=== PATIENT | female | born 1980 | race Caucasian/White ===

== ENCOUNTER → 2018-03-27 | Outpatient (CLI) | payer OTHER ==
--- NOTE | 2018-03-27 17:12 | CT ---
EXAMINATION TYPE: CT abdomen pelvis w con DATE OF EXAM: 03/27/2018 HISTORY: RLQ pain with nausea and vomiting for [address] DLP: 1083.5mGycm Automated Exposure Control for Dose Reduction was Utilized. CONTRAST: CT scan of the abdomen and pelvis is performed with IV Contrast, patient injected with 100 mL of Isov ue 300. COMPARISON: None FINDINGS: LUNG BASES: No significant abnormality is appreciated. LIVER/GB: Cholecystectomy clips are noted. PANCREAS: No significant abnormality is seen. SPLEEN: No significant abnormality is seen. ADRENALS: No significant abnormality is seen. KIDNEYS: No significant abnormality is seen. BOWEL: Oral contrast reaches level of splenic flexure making evaluation of distal bowel suboptimal. A ppendix is contrast-filled and unremarkable from base of cecum seen best coronal images 43 through 50 . There is no suspicious small or large bowel dilatation. UTERUS/ADNEXA: There is heterogeneous slightly retroverted uterus with lobulation and hypoechoic area s suspicious for fibroids. Left ovary is seen axial image 74. There is 2.8 x 1.7 cm low dense lesion left ovary could reflect simple small ovarian cyst. There is larger 4.5 x 4.0 cm oval low dense lesio n right ovary could reflect simple ovarian cyst axial image 79. Findings can be better evaluated with pelvic ultrasound is desired. LYMPH NODES: No greater than 1cm abdominal or pelvic lymph nodes are appreciated. OSSEOUS STRUCTURES: No significant abnormality is seen. OTHER: No significant additional abnormality is seen. IMPRESSION: No CT evidence for acute appendicitis. No significant acute finding is seen to account fo r patient's clinical symptoms.
== END | disposition home or self-care (01) ==
LOC: RADCTMAIN 14:12
PROVIDERS: ATTEND Internal Medicine
DX: R10.30 Lower abdominal pain, unspecified (principal)
CPT/HCPCS: 74177; Q9967

== ENCOUNTER → 2018-05-08 | Outpatient (CLI) | payer OTHER ==
--- NOTE | 2018-05-09 07:15 | US ---
EXAMINATION TYPE: US transvaginal DATE OF EXAM: 05/08/2018 COMPARISON: 03/21/2012 CLINICAL HISTORY: R10.2 Pelvic pain. Hx of ovarian cysts ablation 2012 pain TECHNIQUE: Transvaginal (TV). Transabdominal sonographic images of the pelvis were acquired. Trans vaginal sonographic images were medically necessary to better assess the following anatomy: EXAM MEASUREMENTS: Uterus: 6.1 x 3.2 x 4.8 cm Endometrial Stripe: 0.3m Right Ovary: 4.5 x 3.6 x 5.0 Left Ovary: 2.4 x 1.4 x 1.3 1. Uterus: Retroverted Heterogenous 2 hypoechoic areas seen not well defined border largest 1.7 x 1. 1 x 1.5cm. 2. Endometrium: wnl 3. Right Ovary: No ovarian tissue seen due to cystic area 4.5 x 3.6 x 5.0cm. 4. Left Ovary: wnl 5. Bilateral Adnexa: wnl 6. Posterior cul-de-sac: wnl Right ovarian cyst seen 4.5 x 3.6 x 5.0 cm. IMPRESSION: 1. Large right ovarian simple appearing cyst. Follow-up exam following the next normal menstrual brisa od is recommended. 2. Suspected small uterine fibroids.
== END | disposition home or self-care (01) ==
LOC: RADUSMAIN 17:52
PROVIDERS: ATTEND Obstetrics & Gynecology
DX: N83.201 Unspecified ovarian cyst, right side (principal)
CPT/HCPCS: 76830

== ENCOUNTER → 2018-06-26 | Outpatient (CLI) | payer OTHER ==
[2018-06-26 16:36] LABS: Basophils # (A) 0.1 k/uL (0-0.2); Basophils % (A) 1 %; Eosinophils # (A) 0.2 k/uL (0-0.7); Eosinophils % (A) 4 %; HCT 43.5 % (34.0-46.0); HGB 14.3 gm/dL (11.4-16.0); Lymphocytes # (A) 1.7 k/uL (1.0-4.8); Lymphocytes % (A) 26 %; MCH 30.9 pg (25.0-35.0); MCHC 32.8 g/dL (31.0-37.0); MCV 94.1 fL (80.0-100.0); Mean Platelet Volume 6.9; Monocytes # (A) 0.3 k/uL (0-1.0); Monocytes % (A) 5 %; Neutrophils % (A) 61 %; Platelet Count 227 k/uL (150-450); RBC 4.62 m/uL (3.80-5.40); RDW 13.2 % (11.5-15.5); WBC 6.5 k/uL (3.8-10.6)
[2018-06-26 16:47] LABS: Anion Gap 6 mmol/L; Blood Urea Nitrogen 10 mg/dL (7-17); Carbon Dioxide 26 mmol/L (22-30); Chloride 109 mmol/L (98-107); Glucose 88 mg/dL (74-99); Potassium 3.8 mmol/L (3.5-5.1); Sodium 141 mmol/L (137-145)
== END | disposition home or self-care (01) ==
LOC: LABPAT 15:45
PROVIDERS: ATTEND Obstetrics & Gynecology
DX: Z01.812 Encounter for preprocedural laboratory examination (principal); R10.2 Pelvic and perineal pain; N94.10 Unspecified dyspareunia; N83.201 Unspecified ovarian cyst, right side
CPT/HCPCS: 36415; 80051; 82565; 82947; 84520; 85025; 87086

== ENCOUNTER 2018-07-03 05:43 | Observation (INO) | payer OTHER ==
[2018-06-21 17:56] VITALS: BMI 32.8
--- NOTE | 2018-07-02 12:15 | HP ---
HISTORY AND PHYSICAL DATE OF PROCEDURE: 07/03/2018 HISTORY: This is a 37-year-old gravid 2, para 1-0-1-1 woman who was admitted for robotic- assisted laparoscopic assisted vaginal hysterectomy and right salpingo-oophorectomy for a history of chronic worsening pelvic pain and right ovarian cyst. She has daily right- sided pelvic pain and dyspareunia. She has a 5 cm simple ovarian cyst initially seen on CT scan and confirmed by ultrasound. She has a history of NovaSure endometrial ablation in 2007 and she has been amenorrheic since 2012. She has a tubal ligation for contraception. ALLERGIES: No known drug allergies. MEDICATIONS: None. PAST MEDICAL HISTORY: Pelvic pain. PAST SURGICAL HISTORY: NovaSure endometrial ablation 2007, tubal ligation 2007, cholecystectomy 2007 and cataract surgery. PAST OB-CONTINUITY TESTER HISTORY: She is a 2, para 1-0-1-1 with a history of spontaneous vaginal delivery in 1998 and voluntary termination in 2002. No history of abnormal PAP smears or STDs. She has had a tubal ligation. FAMILY HISTORY: Significant for mother with diabetes and a heart murmur and cancer, not otherwise specified. SOCIAL HISTORY: She is . She is a former 1 [id number] tobacco user, quit smoking one year ago. She drinks one alcoholic beverage per day and has a remote history of illicit drug use, last used 2012. REVIEW OF SYSTEMS: Positive for dyspareunia, chronic pelvic pain, chronic nausea and vomiting. Negative for menorrhagia, vaginal bleeding, blood in the stool or urine, fever, chills, headaches or other neurologic signs. PHYSICAL EXAM: VITAL SIGNS: Blood pressure 100/70, weight 185 pounds, height 5 feet 2 inches. In general, this is a pleasant female in no acute distress. HEENT exam is unremarkable with no palpable lymphadenopathy or thyromegaly. She has no axillary adenopathy. The lungs are clear to auscultation bilaterally and the heart is of regular rate and rhythm. On abdominal examination she has generalized right lower quadrant pain with no rebound and no guarding. On pelvic examination, she has normal female external genitalia without lesions or irritation. Speculum examination of the cervix appears normal without any gross lesions, polyps or discharge. By manual examination, the uterus is small, freely mobile and in the midline. She does have palpable right ovarian cyst and tenderness in the right adnexa. ASSESSMENT: This is a 37-year-old gravid 2, para 1-0-1-1 woman with chronic severe pelvic pain, dyspareunia and right ovarian cyst on imaging. She is scheduled to undergo robotic- assisted, laparoscopic-assisted vaginal hysterectomy with right salpingo-oophorectomy, cystoscopy, possible total abdominal hysterectomy and right salpingo-oophorectomy. I have reviewed this procedure and other options in detail with the patient in the office. She has been offered and declined a second opinion. Risks of this procedure have been reviewed in detail and include but are not limited to colon bleeding, transfusion, laparotomy, infection, damage to bowel, bladder, ureters, vagina, other pelvic or intra-abdominal structures. There is risk of anesthesia complications, DVT, PE and or need for reoperation in the future. She understands there is a risk for ongoing pelvic pain postoperatively. The patient understands the possible risks and consent is obtained. MMODL / IJN: [id number] /
[~2018-07-03 05:43] MED LIST: DEXAMETHASONE SOD PHOSPHATE 10 MG/ML 1 ML VIAL IV ONE; LIDOCAINE 1% 20 ML VIAL (10MG/ML) FOR IV START INTRADERMA PRN; MIDAZOLAM (PF) 2 MG/2 ML VIAL IV PRN; ceFAZolin IN SWFI 2 GM/20 ML SYRINGE IVP ONE; fentaNYL (PF) 50 MCG/ML 2 ML AMP IV PRN
[2018-07-03] MEDS: LACTATED RINGERS 1,000 ML IV SCH ×2 (06:37→18:35)
[2018-07-03] MEDS ORDERED: ONDANSETRON 4 MG/2 ML VIAL IVP ONE (06:41)
[2018-07-03] MEDS ORDERED: PROPOFOL 10 MG/ML 20 ML VIAL IV ONE (07:20)
[2018-07-03] MEDS ORDERED: fentaNYL (PF) 50 MCG/ML 2 ML AMP ONE (07:20)
[2018-07-03] MEDS ORDERED: SUCCINYLCHOLINE CHLORIDE 100 MG/5 ML SYR IV ONE (07:20)
[2018-07-03] MEDS ORDERED: KETAMINE 10 MG/ML 20 ML VIAL ONE (07:20)
[2018-07-03] MEDS ORDERED: ePHEDrine SULFATE/0.9% NACL/PF 50 MG/5 ML SYRINGE IV ONE (07:20)
[2018-07-03] MEDS ORDERED: NEOSTIGMINE 1 MG/ML 10 ML VIAL ONE (07:20)
[2018-07-03] MEDS ORDERED: MIDAZOLAM 2 MG/2 ML VIAL ONE (07:20)
[2018-07-03] MEDS ORDERED: ROCURONIUM BROMIDE 10 MG/ML 10 ML VIAL IV ONE (07:20)
[2018-07-03] MEDS ORDERED: GLYCOPYRROLATE 0.2 MG/ML 2 ML VIAL ONE (07:20)
[2018-07-03] MEDS ORDERED: KETOROLAC 30 MG/ML 1 ML VIAL ONE (07:20)
[2018-07-03] MEDS ORDERED: LIDOCAINE 1% INJ 10MG/ML (20 ML MDV) ONE (07:20)
[2018-07-03] MEDS ORDERED: ROPIVACAINE 5 MG/ML 30 ML VIAL MISCELLANE ONE ×2 (08:08→10:03)
[2018-07-03] MEDS ORDERED: LACTATED RINGERS 1,000 ML IV ONE (10:00)
--- NOTE | 2018-07-03 10:13 | P.OP ---
Date of Procedure: 07/03/18 Preoperative Diagnosis: Chronic pelvic pain Dyspareunia Right ovarian cyst Postoperative Diagnosis: Chronic pelvic pain Dyspareunia Right ovarian cyst Significant pelvic adhesive disease Procedure(s) Performed: Robotic-assisted laparoscopic assisted vaginal hysterectomy, right salpingo- oophorectomy, cystoscopy Anesthesia: EDENA Surgeon: Celeste Mayers Staff Sonographer #1: Sridevi Holt Estimated Blood Loss (ml): 75 IV fluids (ml): 1,000 Urine output (ml): 250 Pathology: other (Uterus, right fallopian tube, right ovary) Condition: stable Disposition: PACU Operative Findings: Uterus with an obliterated endometrial canal. Simple 5 cm right ovarian cyst. Small retroverted uterus. Adhesions involving the sigmoid colon to the posterior uterus, right adnexa and left adnexa. Description of Procedure: After the patient and her mother were met in the preoperative holding area and all questions were answered, she was taken to the operating room where anesthetic was administered without incident. She was then positioned, prepped and draped in the dorsal lithotomy position. The cervix was grasped anteriorly with a single-tooth tenaculum and uterine sound was introduced. The sound could only be advanced approximately 4 cm on the eye which time significant resistance was encountered consistent with her history of abrasion. Further attempt at sharp dilation was unsuccessful. The V care however was placed and the balloon insufflated. Montanez catheter was placed in the vagina. Attention was then turned to the abdomen. The patient was placed in low lithotomy position. A 10 mm supraumbilical skin incision was made. The anterior abdominal wall was grasped and elevated and the Veress needle was inserted carefully. A saline drop test indicated intraperitoneal placement. Initial filling pressure was 4 mm. The abdomen was then insufflated with CO2 gas to a total filling pressure of 15 mm. The patient was removed and the fluid was optical trocar was then utilized to introduce the camera. Intraperitoneal placement was noted. The patient was then placed in steep Trendelenburg. Under direct visualization da Kia ports were placed to the left and right and a 12 mm recruiting assistant port was placed in the left upper quadrant. At this time uterine manipulation was difficult and further attempts at advancing the manipulator device did result in the anterior left perforation of the uterus. This was directly visualized and the manipulator was placed back into better place. The inferior block was then docked in the usual fashion. The monopolar liliana were placed in arm 1 and the bipolar [place] graspers were placed in arm 2. The uterus was gently elevated but it was less than optimal was a. The right adnexa was addressed after sharp dissection of the sigmoid to posterior uterus adhesions were dissected away. The right adnexa had a 5 cm simple appearing ovarian cyst and adhesions to the right ovarian fossa. These were sharply dissected away allowing for better mobilization of the ovary. Infundibulopelvic ligament was then positively identified and was sequentially cauterized and cut. The right round ligament was sequentially cauterized and cut and the anterior leaf of the broad ligament was entered. Careful manipulation of the uterus to allow for visualization of the bladder. The anterior peritoneum was then inserted all the way down to the midline advancing the bladder away carefully. Attention was then turned to the left side. The left ovary was adherent to the left posterior cornea of the uterus and this was carefully dissected away. The tubo-ovarian pedicle was then sequentially cauterized and cut along the ovary to fall away. The left round ligament was then sequentially cauterized and cut. Again careful many uterine manipulation allowed for visualization of the bladder anteriorly and the anterior peritoneum was further dissected away. The anterior bladder was then carefully sharply and bluntly away and the vaginal cup of the manipulator was then palpable. The posterior leaves of the broad ligament were dissected away and there were extensive filmy adhesions to the sigmoid colon encountered that were dissected. The left uterine vasculature was then skeletonized, sequentially cauterized and cut. Attention was then turned to the right side where the right uterine vasculature was cauterized and cut. The uterus blanched appropriately. The bladder was reassessed and noted to be dissected away and early the colpotomy was then made anteriorly and carried around posteriorly and a circumferential fashion. Once the colpotomy was made completely there were still noted to be adhesions of the right ovarian cyst to the posterior cul-de-sac that were sharply dissected away. This completely freed the specimen was then delivered into the vagina. The self locking 2-0 Vicryl suture was then introduced after the instruments were changed out for needle route delivery driver and grasper. The cuff was then closed in a running fashion from right to left. Urine in the Montanez catheter remained clear throughout the procedure. The course of the right ureter was noted to enter abdominally to be peristalsing. The left ureter was not visualized secondary to adhesions of the left ovary to that area. Attention was then turned to cystoscopy. The Montanez catheter was removed and the diagnostic cystoscope was introduced. Immediately urine jets from both the right and left ureteral orifice see his were directly visualized. In the there is no evidence of blood or suture material or other defects in the bladder noted. The cystoscope was removed. The robot was undocked from the patient and ports were removed. The abdominal incisions were closed with 4-0 Vicryl suture in a subcuticular fashion and infused with ropivacaine. Sponge into the vagina revealed no active bleeding. The patient was then awoken from general anesthetic and transported recovery area in stable condition. All counts reported to me as correct by the operating room staff.
[2018-07-03] MEDS ORDERED: HYDROmorphone 1 MG/ML 1 ML SYRINGE IVP ONE (10:41)
[2018-07-03] MEDS ORDERED: ZOLPIDEM 5 MG TAB PO PRN (11:31)
[2018-07-03] MEDS ORDERED: ONDANSETRON 4 MG/2 ML VIAL IVP PRN (11:31)
[2018-07-03] MEDS ORDERED: SIMETHICONE 80 MG CHEWABLE PO PRN (11:31)
[2018-07-03] MEDS ORDERED: IBUPROFEN 600 MG TAB PO PRN (11:31)
[2018-07-03] MEDS ORDERED: Acetaminophen-Codeine 300-30mg TAB PO PRN ×2 (11:31)
[2018-07-03] MEDS ORDERED: METOCLOPRAMIDE 5 MG/ML 2 ML VIAL IVP PRN (11:31)
[2018-07-03] MEDS ORDERED: diphenhydrAMINE 50 MG/ML 1 ML VIAL IVP PRN (11:31)
[2018-07-03] MEDS ORDERED: diphenhydrAMINE 25 MG CAP PO PRN (15:39)
[2018-07-03] MEDS: KETOROLAC 30 MG/ML 1 ML VIAL IVP PRN ×2 (15:52→21:41)
[2018-07-03] MEDS: HYDROcodone/APAP 7.5-325MG 1 EACH TAB PO PRN (17:32)
[2018-07-03] MEDS: SENNOSIDES-DOCUSATE SODIUM 1 EACH TAB PO SCH (20:29)
[2018-07-04] MEDS: HYDROcodone/APAP 7.5-325MG 1 EACH TAB PO PRN (02:00)
[2018-07-04] MEDS: LACTATED RINGERS 1,000 ML IV SCH (02:49)
[2018-07-04] MEDS: KETOROLAC 30 MG/ML 1 ML VIAL IVP PRN (02:53)
[2018-07-04 07:41] VITALS: BP 108/64; PULSE 61; RESP 18; TEMP 97.7
[2018-07-04 07:48] LABS: Basophils % (A) 0 %; Eosinophils % (A) 0 %; HCT 35.8 % (34.0-46.0); HGB 11.5 gm/dL (11.4-16.0); Lymphocytes # (A) 1.2 k/uL (1.0-4.8); Lymphocytes % (A) 10 %; MCH 30.3 pg (25.0-35.0); MCHC 32.1 g/dL (31.0-37.0); MCV 94.4 fL (80.0-100.0); Mean Platelet Volume 6.5; Monocytes # (A) 0.6 k/uL (0-1.0); Monocytes % (A) 6 %; Neutrophils # (A) 9.6 k/uL (1.3-7.7); Neutrophils % (A) 83 %; Platelet Count 193 k/uL (150-450); RBC 3.79 m/uL (3.80-5.40); RDW 13.7 % (11.5-15.5); WBC 11.6 k/uL (3.8-10.6)
[2018-07-04] MEDS ORDERED: HYDROcodone/APAP 7.5-325MG 1 EACH TAB PO PRN (07:58)
--- NOTE | 2018-07-04 08:10 | P.DS ---
Providers Date of admission: 07/03/18 21:54 Expected date of discharge: 07/04/18 Attending physician: Celeste Mayers Primary care physician: Lily Strickland - Discharge Diagnosis(es) (1) Chronic pelvic pain in female Current Visit: Yes Status: Acute (2) Right ovarian cyst Current Visit: Yes Status: Acute (3) Dyspareunia Current Visit: Yes Status: Acute (4) Pelvic adhesions Current Visit: Yes Status: Acute Hospital Course: This is a 37-year-old 2 para 1011 woman who was admitted on 07/05/2018 for surgical management of chronic pelvic pain, dyspareunia and right ovarian cyst. She went to the operating room where she underwent a robotic-assisted laparoscopic assisted vaginal hysterectomy, right salpingo-oophorectomy, lysis of pelvic adhesions and cystoscopy. Findings at the time of surgery were remarkable for extensive pelvic adhesions and a 5 cm right ovarian cyst. Please see the operative report for details. Postoperatively she did have some low oxygen saturations on room air. She was instructed on incentive spirometry and monitored closely. On postop day 1 she has oxygen saturations at 90-94% on room air. She has no complaints of shortness of breath or cough. Her pain management required adjustment from Tylenol with Codeine to [place] with improved pain control. She was able to tolerate a general diet. She was ambulating however has not yet voided spontaneously with a Montanez catheter removed. She has no vaginal bleeding. Her incisions appear intact and well-healing. Her abdomen is soft with no rebound no guarding and no tenderness. She was therefore discharged home pending laboratory data, spontaneous voiding and adequate pain control. Anticipate discharge home later today. Procedures: Robotic-assisted laparoscopic assisted vaginal hysterectomy, right suppurative oophorectomy, cystoscopy Patient Condition at Discharge: Good Plan - Discharge Summary Discharge Rx Participant: Yes New Discharge Prescriptions: New HYDROcodone/APAP 7.5-325MG [[place] 7.5-325] 1 each PO Q6H PRN #20 tab PRN Reason: Pain Ibuprofen [Motrin] 600 mg PO Q6HR PRN #30 tab PRN Reason: Pain Control Sennosides-Docusate Sodium [Senokot-S] 2 each PO BID PRN #30 tab PRN Reason: Constipation Continue DULoxetine HCL [Cymbalta] 30 mg PO DAILY Discharge Medication List DULoxetine HCL [Cymbalta] 30 mg PO DAILY 05/25/16 [History] HYDROcodone/APAP 7.5-325MG [[place] 7.5-325] 1 each PO Q6H PRN #20 tab 07/04/18 [ Rx] Ibuprofen [Motrin] 600 mg PO Q6HR PRN #30 tab 07/04/18 [Rx] Sennosides-Docusate Sodium [Senokot-S] 2 each PO BID PRN #30 tab 07/04/18 [Rx] Follow up Appointment(s)/Referral(s): Celeste Mayers MD [STAFF PHYSICIAN] - 2 Weeks Activity/Diet/Wound Care/Special Instructions: Follow-up in the office 2 weeks postoperatively. Notify the office with any concerning signs or symptoms including heavy vaginal bleeding, severe abdominal or pelvic pain, fever greater than 100.5, redness or drainage from the incisions, foul vaginal discharge, redness or swelling of the lower extremities. Discharge Disposition: HOME SELF-CARE
[2018-07-04] MEDS ORDERED: DULoxetine HCL 30 MG CAPSULE.DR PO SCH (09:00)
[2018-07-04] MEDS: SENNOSIDES-DOCUSATE SODIUM 1 EACH TAB PO SCH (09:22)
== END 2018-07-04 13:35 | disposition home or self-care (01) ==
LOC: OR 05:43 → 4FBP 10:29 → OR 21:53 → 4FBP 21:54
PROVIDERS: ADMIT Obstetrics & Gynecology; ATTEND Obstetrics & Gynecology
DX: N80.0 Endometriosis of uterus (principal); N72 Inflammatory disease of cervix uteri; N73.6 Female pelvic peritoneal adhesions (postinfective); N83.201 Unspecified ovarian cyst, right side; N94.10 Unspecified dyspareunia; R10.2 Pelvic and perineal pain; G89.29 Other chronic pain; R11.2 Nausea with vomiting, unspecified; K21.9 Gastro-esophageal reflux disease without esophagitis; N91.2 Amenorrhea, unspecified; Z98.49 Cataract extraction status, unspecified eye; Z90.49 Acquired absence of other specified parts of digestive tract; Z98.51 Tubal ligation status; Z87.891 Personal history of nicotine dependence; Z83.3 Family history of diabetes mellitus; Z82.49 Family history of ischemic heart disease and other diseases of the circulatory system; Z80.9 Family history of malignant neoplasm, unspecified
CPT/HCPCS: 58552; S2900; 81025; 85025; 86850; 86900; 86901; 88307

== ENCOUNTER 2018-10-09 17:20 | Emergency (ER) | payer OTHER ==
[2018-10-09] MEDS ORDERED: SODIUM CHLORIDE 0.9% 1,000 ML IV STA (17:38)
--- NOTE | 2018-10-09 17:40 | ED ---
General Adult HPI - General Chief complaint: Abdominal Pain Stated complaint: Nausea/abd.pain Time Seen by Provider: 10/09/18 17:32 Source: patient, RN notes reviewed Mode of arrival: ambulatory Limitations: no limitations - History of Present Illness Initial comments: Patient's a 38-year-old female presented to the emergency room today with a chief complaint of abdominal pain that started this morning approximately 11 AM. Patient does admit to a sharp pain that starts in the middle of the abdomen to the right side around to the back. Patient states that it comes in waves. She is comes and goes. States currently not expressing any pain at this time. Patient does admit that when the pain is there she does feel nauseous. She states she's never had pain similar to this in the past. Patient does admit to previous history of endometriosis. She states that she had a hysterectomy and right ovary removed. Patient denies any other complaints. Patient denies any recent fever, chills, shortness of breath, chest pain, back pain, vomiting, hea daches or visual changes, or any other complaints. - Related Data Home Medications Medication Instructions Recorded Confirmed No Known Home Medications 10/09/18 10/09/18 Allergies Allergy/AdvReac Type Severity Reaction Status Date / Time No Known Allergies Allergy Verified 10/09/18 18:32 Review of Systems ROS Statement: Those systems with pertinent positive or pertinent negative responses have been documented in the HPI. ROS Other: All systems not noted in ROS Statement are negative. Past Medical History Past Medical History: No Reported History Additional Past Medical History / Comment(s): IBS, ovarian cyst History of Any Multi-Drug Resistant Organisms: None Reported Past Surgical History: Cholecystectomy, Hysterectomy, Tubal Ligation, Uterine Ablation Additional Past Surgical History / Comment(s): cataracts removed Past Anesthesia/Blood Transfusion Reactions: No Reported Reaction Past Psychological History: Depression Smoking Status: Never smoker Past Alcohol Use History: Occasional Past Drug Use History: Marijuana - Past Family History Mother Family Medical History: Cancer General Exam - General Exam Comments Initial Comments: General: The patient is awake and alert, in no distress, and does not appear acutely ill. Eye: There is normal conjunctiva bilaterally. No signs of icterus. Ears, nose, mouth and throat: There are moist mucous membranes and no oral lesions. Neck: The neck is supple, there is no tenderness or JVD. Cardiovascular: There is a regular rate and rhythm. No murmur, rub or gallop is appreciated. Respiratory: Lungs are clear to auscultation, respirations are non-labored, breath sounds are equal. No wheezes, stridor, rales, or rhonchi. Gastrointestinal: Abdomen soft on palpation. Nontender no rebound, guarding or CVA tenderness. Musculoskeletal: Normal ROM, no tenderness. Strength 5/5. Sensation intact. Neurological: A&O x 3. CN II-XII intact, There are no obvious motor or sensory deficits. Coordination appears grossly intact. Speech is normal. Skin: Skin is warm and dry and no rashes or lesions are noted. Psychiatric: Cooperative, appropriate mood & affect, normal judgment. Limitations: no limitations Course Vital Signs 10/09/18 10/09/18 17:27 19:15 Temperature 97.9 F Pulse Rate 64 56 L Respiratory 20 18 Rate Blood Pressure 120/77 100/65 O2 Sat by Pulse 99 99 Oximetry Medical Decision Making - Medical Decision Making The patient reexamined at the central no signs of distress procedures ago. Patient admits to being pain-free here in the emergency room at this time. Patient labs been reviewed unremarkable. Patient is advised following up with family doctor tomorrow. She does be discharged on the family doctor today who sent her home with an antibiotic. Patient is advised to return here to the emergency room for any symptoms increase worsen. Signs and symptoms of early appendicitis were discussed in detail. Patient states understanding and is ag reement with plan. - Lab Data Result diagrams: 10/09/18 18:25 10/09/18 18:25 Lab Results 10/09/18 10/09/18 10/09/18 Range/Units 18:25 18:25 18:25 WBC 9.4 (3.8-10.6) k/uL RBC 4.98 (3.80-5.40) m/uL Hgb 15.0 (11.4-16.0) gm/dL Hct 45.5 (34.0-46.0) % MCV 91.2 (80.0-100.0) fL MCH 30.1 (25.0-35.0) pg MCHC 33.0 (31.0-37.0) g/dL RDW 14.2 (11.5-15.5) % Plt Count 233 (150-450) k/uL Neutrophils % 74 % Lymphocytes % 18 % Monocytes % 5 % Eosinophils % 2 % Basophils % 0 % Neutrophils # 6.9 (1.3-7.7) k/uL Lymphocytes # 1.6 (1.0-4.8) k/uL Monocytes # 0.5 (0-1.0) k/uL Eosinophils # 0.2 (0-0.7) k/uL Basophils # 0.0 (0-0.2) k/uL Sodium 142 (137-145) mmol/L Potassium 4.3 (3.5-5.1) mmol/L Chloride 112 H (98-107) mmol/L Carbon Dioxide 24 (22-30) mmol/L Anion Gap 6 mmol/L BUN 13 (7-17) mg/dL Creatinine 0.65 (0.52-1.04) mg/dL Est GFR (CKD-EPI)AfAm >90 (>60 ml/min/1.73 sqM) Est GFR (CKD-EPI)NonAf >90 (>60 ml/min/1.73 sqM) Glucose 89 (74-99) mg/dL Calcium 9.8 (8.4-10.2) mg/dL Total Bilirubin 0.9 (0.2-1.3) mg/dL AST 64 H (14-36) U/L ALT 45 (9-52) U/L Alkaline Phosphatase 70 (38-126) U/L Total Protein 7.0 (6.3-8.2) g/dL Albumin 4.4 (3.5-5.0) g/dL Amylase 64 (30-110) U/L Lipase 66 (23-300) U/L Urine Color Yellow Urine Appearance Cloudy H (Clear) Urine pH 5.5 (5.0-8.0) Ur Specific [place] 1.031 (1.001-1.035) Urine Protein Trace H (Negative) Urine Glucose (UA) Negative (Negative) Urine Ketones Negative (Negative) Urine Blood Negative (Negative) Urine Nitrite Negative (Negative) Urine Bilirubin Negative (Negative) Urine Urobilinogen <2.0 (<2.0) mg/dL Ur Leukocyte Esterase Negative (Negative) Urine WBC 4 (0-5) /hpf Ur Squamous Epith Cells 21 H (0-4) /hpf Urine Mucus Many H (None) /hpf Disposition Clinical Impression: Abdominal pain Disposition: HOME SELF-CARE Condition: Good Instructions (If sedation given, give patient instructions): Abdominal Pain (ED) Additional Instructions: Please follow-up with family doctor in the next 2 days of symptoms have not improved. Please return to emergency room if the symptoms increase or worsen or for any other concerns. Is patient prescribed a controlled substance at d/c from ED?: No Referrals: Lily Strickland MD [Primary Care Provider] - 1-2 days Time of Disposition: 19:36
[2018-10-09 18:34] LABS: Basophils % (A) 0 %; Eosinophils # (A) 0.2 k/uL (0-0.7); Eosinophils % (A) 2 %; HCT 45.5 % (34.0-46.0); Lymphocytes # (A) 1.6 k/uL (1.0-4.8); Lymphocytes % (A) 18 %; MCH 30.1 pg (25.0-35.0); MCV 91.2 fL (80.0-100.0); Mean Platelet Volume 7.1; Monocytes # (A) 0.5 k/uL (0-1.0); Monocytes % (A) 5 %; Neutrophils # (A) 6.9 k/uL (1.3-7.7); Neutrophils % (A) 74 %; Platelet Count 233 k/uL (150-450); RBC 4.98 m/uL (3.80-5.40); RDW 14.2 % (11.5-15.5); WBC 9.4 k/uL (3.8-10.6)
[2018-10-09 18:42] LABS: ALT 45 U/L (9-52); AST 64 U/L (14-36); Albumin 4.4 g/dL (3.5-5.0); Alkaline Phosphatase 70 U/L (38-126); Amylase 64 U/L (30-110); Anion Gap 6 mmol/L; Blood Urea Nitrogen 13 mg/dL (7-17); Calcium 9.8 mg/dL (8.4-10.2); Carbon Dioxide 24 mmol/L (22-30); Chloride 112 mmol/L (98-107); Glucose 89 mg/dL (74-99); Lipase 66 U/L (23-300); Potassium 4.3 mmol/L (3.5-5.1); Sodium 142 mmol/L (137-145); Total Bilirubin 0.9 mg/dL (0.2-1.3)
[2018-10-09 19:16] VITALS: RESP 18
[2018-10-09 19:28] LABS: Appearance,Urine Cloudy (Clear); Bilirubin,Urine Negative (Negative); Blood,Urine Negative (Negative); Color,Urine Yellow; Glucose,Urine (UA) Negative (Negative); Ketones,Urine Negative (Negative); Leukocyte Esterase,Urine Negative (Negative); Mucus,Urine Many /hpf; Nitrite,Urine Negative (Negative); PH, Urine 5.5 (5.0-8.0); Protein,Urine Trace (Negative); Specific Gravity,Urine 1.031 (1.001-1.035); Squamous Epithelial Cell,Urine 21 /hpf (0-4); Urobilinogen,Urine <2.0 mg/dL (<2.0); WBC,Urine 4 /hpf (0-5)
[2018-10-09 19:58] VITALS: BP 103/59; PULSE 52; TEMP 98.2
== END 2018-10-09 19:56 | disposition home or self-care (01) ==
LOC: EC 17:20
DX: R10.9 Unspecified abdominal pain (principal); R11.0 Nausea; Z90.49 Acquired absence of other specified parts of digestive tract; Z90.710 Acquired absence of both cervix and uterus
CPT/HCPCS: 36415; 80053; 81001; 82150; 83690; 85025; 96360; 99284

== ENCOUNTER 2018-10-11 13:08 | Emergency (ER) | payer OTHER ==
[2018-10-11] MEDS ORDERED: SODIUM CHLORIDE 0.9% 500 ML 500 ML IV STA (13:32)
[2018-10-11 13:48] LABS: Basophils % (A) 0 %; Eosinophils # (A) 0.2 k/uL (0-0.7); Eosinophils % (A) 2 %; HCT 48.2 % (34.0-46.0); HGB 15.5 gm/dL (11.4-16.0); Lymphocytes # (A) 1.3 k/uL (1.0-4.8); Lymphocytes % (A) 14 %; MCH 29.7 pg (25.0-35.0); MCHC 32.2 g/dL (31.0-37.0); Mean Platelet Volume 6.7; Monocytes # (A) 0.4 k/uL (0-1.0); Monocytes % (A) 4 %; Neutrophils % (A) 78 %; Platelet Count 288 k/uL (150-450); RBC 5.24 m/uL (3.80-5.40); RDW 13.6 % (11.5-15.5); WBC 8.9 k/uL (3.8-10.6)
[2018-10-11 13:49] LABS: Appearance,Urine Clear (Clear); Bilirubin,Urine Negative (Negative); Blood,Urine Negative (Negative); Color,Urine Yellow; Glucose,Urine (UA) Negative (Negative); Ketones,Urine Negative (Negative); Leukocyte Esterase,Urine Negative (Negative); Nitrite,Urine Negative (Negative); Protein,Urine Trace (Negative); Specific Gravity,Urine 1.027 (1.001-1.035)
[2018-10-11 13:57] LABS: ALT 47 U/L (9-52); AST 45 U/L (14-36); Albumin 4.8 g/dL (3.5-5.0); Alkaline Phosphatase 72 U/L (38-126); Amylase 80 U/L (30-110); Anion Gap 8 mmol/L; Blood Urea Nitrogen 10 mg/dL (7-17); Calcium 10.1 mg/dL (8.4-10.2); Carbon Dioxide 29 mmol/L (22-30); Chloride 106 mmol/L (98-107); Glucose 100 mg/dL (74-99); Lipase 65 U/L (23-300); Potassium 4.2 mmol/L (3.5-5.1); Sodium 143 mmol/L (137-145); Total Bilirubin 0.7 mg/dL (0.2-1.3); Total Protein 7.5 g/dL (6.3-8.2)
--- NOTE | 2018-10-11 14:26 | CT ---
EXAMINATION TYPE: CT abdomen pelvis w con DATE OF EXAM: 10/11/2018 COMPARISON: Prior CT 03/27/2018 HISTORY: Left side abdominal pain, stomach pain and back pain CT DLP: 1057.6 mGycm Automated exposure control for dose reduction was used. TECHNIQUE: Helical acquisition of images from the lung bases through the pelvis have been completed. CONTRAST: Performed without Oral Contrast and with IV Contrast, patient injected with 100 mL of Isovue 300. FINDINGS: LUNG BASES: No significant abnormality is appreciated. AORTA: No significant abnormality is appreciated. LIVER/GB: Patient is status post cholecystectomy. Liver shows a similar appearance to prior exam PANCREAS: No significant abnormality is seen. SPLEEN: No significant abnormality is seen. ADRENALS: No significant abnormality is seen. KIDNEYS: No significant abnormality is seen. REPRODUCTIVE ORGANS: Uterus is not seen. Suspect there is a cystic focus associated with the left ova ry which is decreased in size compared to prior now measuring only 19 mm, the right ovarian cyst is n ot seen, right ovary not seen with certainty BOWEL: There are fluid filled loops of small bowel present proximally, more distal phalanx are decom pressed. The appendix is normal. FREE AIR: No Free Air visible. ASCITES: Small amount of fluid is present within the pelvis PELVIC ADENOPATHY: None visualized. RETROPERITONEAL ADENOPATHY: No Retroperitoneal Adenopathy visible. URINARY BLADDER: Contracted OSSEOUS STRUCTURES: No significant abnormality is seen. IMPRESSION: FINDINGS COULD REPRESENT AN ENTERITIS, DIFFICULT TO EXCLUDE BOWEL OBSTRUCTION, FOLLOW-UP INDICATED . POSTOP CHANGES.
[2018-10-11] MEDS ORDERED: MORPHINE SULFATE 2 MG/ML SYRINGE IVP STA (14:41)
[2018-10-11] MEDS ORDERED: MAG HYDROX/AL HYDROX/SIMETH 30 ML, HYOSCYAMINE ELIXIR 10 ML, CIMETIDINE HCL 300 MG, LID... PO STA ×4 (14:41)
--- NOTE | 2018-10-11 14:45 | ED ---
Abdominal Pain HPI - General Chief Complaint: Abdominal Pain Stated Complaint: abdominal pain Time Seen by Provider: 10/11/18 13:18 Source: patient Mode of arrival: ambulatory Limitations: no limitations - History of Present Illness Initial Comments: 38-year-old female presenting for abdominal pain 3 days. She states she has had abdominal pain the mid abdomen that radiates towards the right lower quadrant into the back. She states that she has had diarrhea as well as an episode of vomiting today. Patient denies constipation. Patient states she is air bowel syndrome she denies fever chills or night sweats. Patient denies chest pain or short of breath she has lower extremity swelling. Patient has had previous cholecystectomy. Patient has had history of gout. Patient denies any hematemesis melena or hematochezia. Patient states she was sent by her primary care provider, Dr Strickland for CT of the abdomen and pelvis. She denies vaginal bleeding, abdominal cramping and vaginal discharge. Patient denies dysuria urgency or frequency. Remaining review of systems negative upon arrival patient appears well no signs of acute distress. - Related Data Home Medications Medication Instructions Recorded Confirmed No Known Home Medications 10/09/18 10/11/18 Allergies Allergy/AdvReac Type Severity Reaction Status Date / Time No Known Allergies Allergy Verified 10/11/18 13:23 Review of Systems ROS Statement: Those systems with pertinent positive or pertinent negative responses have been documented in the HPI. ROS Other: All systems not noted in ROS Statement are negative. Past Medical History Past Medical History: No Reported History Additional Past Medical History / Comment(s): IBS, ovarian cyst History of Any Multi-Drug Resistant Organisms: None Reported Past Surgical History: Cholecystectomy, Hysterectomy, Tubal Ligation, Uterine Ablation Additional Past Surgical History / Comment(s): cataracts removed Past Anesthesia/Blood Transfusion Reactions: No Reported Reaction Past Psychological History: Depression Smoking Status: Never smoker Past Alcohol Use History: Occasional Past Drug Use History: Marijuana - Past Family History Mother Family Medical History: Cancer General Exam - General Exam Comments Initial Comments: General: The patient is awake and alert, in no distress, and does not appear acutely ill. Eye: Pupils are equal, round and reactive to light, extra-ocular movements are intact. No nystagmus. There is normal conjunctiva bilaterally. No signs of i cterus. Ears, nose, mouth and throat: There are moist mucous membranes and no oral lesions. Neck: The neck is supple, there is no tenderness or JVD. Cardiovascular: There is a regular rate and rhythm. No murmur, rub or gallop is appreciated. Respiratory: Lungs are clear to auscultation, respirations are non-labored, breath sounds are equal. No wheezes, stridor, rales, or rhonchi. Gastrointestinal: Soft, non-distended, tender to the b/l lower-mid abdomen without masses or organomegaly noted. There is no rebound or guarding present. No CVA tenderness. Bowel sounds are unremarkable. Musculoskeletal: Normal ROM, no tenderness. Strength 5/5. Sensation intact. Pulses equal bilaterally 2+. Neurological: A&O x 3. CN II-XII intact, There are no obvious motor or sensory deficits. Coordination appears grossly intact. Speech is normal. Skin: Skin is warm and dry and no rashes or lesions are noted. Psychiatric: Cooperative, appropriate mood & affect, normal judgment. Limitations: no limitations Course Vital Signs 10/11/18 10/11/18 13:10 16:00 Temperature 97.8 F 98.1 F Pulse Rate 50 L 51 L Respiratory 18 19 Rate Blood Pressure 115/73 114/75 O2 Sat by Pulse 100 99 Oximetry Medical Decision Making - Medical Decision Making 38-year-old female presenting today for chief complaint of abdominal pain diarr hea of vomiting she states this been ongoing for the past 3-4 days. Patient denies constipation. Patient was sent for CT the abdomen and pelvis by primary care provider Dr Hall. Laboratory studies unremarkable, no leukocytosis. No significant transaminase increase or increase in alk phos. No tenderness to palpation of the upper quadrant. CT of the abdomen and pelvis revealed no acute after revealed findings consistent with a possible enteritis. I do not feel this is an obstruction given pt is complaining of diarrhea and had a BM this morning. Patient does not have any rigidity or guarding on examination. There is no signs of peritoneal irritation. At this time after IV hydration analgesics the emergency department. Patient is stable for discharge with symptomatic treatment increase the fluids outpatient. Patient is to follow-up with primary care provider and return for worsening symptoms. Patient is agreeable care plan as well as discharged today. I discussed the care with attenidng provider Dr. brewer who is agreeable with care plan and discharge at this time. - Lab Data Result diagrams: 10/11/18 13:24 05/16/19 13:24 Lab Results 10/11/18 10/11/18 10/11/18 Range/Units 13:24 13:24 13:24 WBC 8.9 (3.8-10.6) k/uL RBC 5.24 (3.80-5.40) m/uL Hgb 15.5 (11.4-16.0) gm/dL Hct 48.2 H (34.0-46.0) % MCV 92.0 (80.0-100.0) fL MCH 29.7 (25.0-35.0) pg MCHC 32.2 (31.0-37.0) g/dL RDW 13.6 (11.5-15.5) % Plt Count 288 (150-450) k/uL Neutrophils % 78 % Lymphocytes % 14 % Monocytes % 4 % Eosinophils % 2 % Basophils % 0 % Neutrophils # 7.0 (1.3-7.7) k/uL Lymphocytes # 1.3 (1.0-4.8) k/uL Monocytes # 0.4 (0-1.0) k/uL Eosinophils # 0.2 (0-0.7) k/uL Basophils # 0.0 (0-0.2) k/uL Sodium 143 (137-145) mmol/L Potassium 4.2 (3.5-5.1) mmol/L Chloride 106 (98-107) mmol/L Carbon Dioxide 29 (22-30) mmol/L Anion Gap 8 mmol/L BUN 10 (7-17) mg/dL Creatinine 0.69 (0.52-1.04) mg/dL Est GFR (CKD-EPI)AfAm >90 (>60 ml/min/1.73 sqM) Est GFR (CKD-EPI)NonAf >90 (>60 ml/min/1.73 sqM) Glucose 100 H (74-99) mg/dL Calcium 10.1 (8.4-10.2) mg/dL Total Bilirubin 0.7 (0.2-1.3) mg/dL AST 45 H (14-36) U/L ALT 47 (9-52) U/L Alkaline Phosphatase 72 (38-126) U/L Total Protein 7.5 (6.3-8.2) g/dL Albumin 4.8 (3.5-5.0) g/dL Amylase 80 (30-110) U/L Lipase 65 (23-300) U/L Urine Color Yellow Urine Appearance Clear (Clear) Urine pH 6.0 (5.0-8.0) Ur Specific [place] 1.027 (1.001-1.035) Urine Protein Trace H (Negative) Urine Glucose (UA) Negative (Negative) Urine Ketones Negative (Negative) Urine Blood Negative (Negative) Urine Nitrite Negative (Negative) Urine Bilirubin Negative (Negative) Urine Urobilinogen 2.0 (<2.0) mg/dL Ur Leukocyte Esterase Negative (Negative) Disposition Clinical Impression: Diarrhea, Abdominal pain, Vomiting Disposition: HOME SELF-CARE Condition: Good Instructions (If sedation given, give patient instructions): Acute Nausea and Vomiting (ED), Acute Diarrhea (ED), Abdominal Pain (ED) Additional Instructions: Please use medication as discussed. Please follow-up with family doctor in the next 2 days, please follow up with GI as discussed. Please return to emergency room if the symptoms increase or worsen or for any other concerns. Is patient prescribed a controlled substance at d/c from ED?: No Referrals: Lily Strickland MD [Primary Care Provider] - 1-2 days Meño Redd MD [STAFF PHYSICIAN] - 1-2 days Time of Disposition: 14:44
[2018-10-11 16:01] VITALS: BP 114/75; PULSE 51; RESP 19; TEMP 98.1
== END 2018-10-11 16:02 | disposition home or self-care (01) ==
LOC: EC 13:08
DX: R19.7 Diarrhea, unspecified (principal); R10.31 Right lower quadrant pain; R11.10 Vomiting, unspecified; M54.5 Low back pain; Z87.19 Personal history of other diseases of the digestive system; Z90.49 Acquired absence of other specified parts of digestive tract
CPT/HCPCS: 36415; 80053; 82150; 83690; 85025; 81003; 74177; 99284; 96374; 96361; J2270; Q9967

== ENCOUNTER 2019-01-02 13:43 | Observation (INO) | payer OTHER ==
[2019-01-02] MEDS ORDERED: SODIUM CHLORIDE 0.9% 1,000 ML IV STA (14:38)
[2019-01-02] MEDS ORDERED: ASPIRIN 81 MG PO STA (14:41)
--- NOTE | 2019-01-02 15:30 | ED ---
General Adult HPI - General Chief complaint: Arrhythmia/Palpitations Stated complaint: Abnormal heart rate Time Seen by Provider: 01/02/19 14:24 Source: patient, RN notes reviewed, old records reviewed Mode of arrival: ambulatory Limitations: no limitations - History of Present Illness Initial comments: Patient is a 38-year-old female presents today with complaints of dizziness. She was sent from [facility] for abnormal EKG findings. She is having this dizziness worsening for the past few days. Patient reports that she was sent for concern for low heart rate and EKG changes. She states she followed with her primary care doctor. No one had a normal EKG at that time. Patient states that she does not know exactly what her heart rate was at that time. Patient states that upon arriving to emergency room she does complain of some chest discomfort and tightness feeling. Patient states that she is a nonsmoker. No known family history of heart disease. - Related Data Home Medications Medication Instructions Recorded Confirmed Naproxen Sodium [Aleve] 440 mg PO ONCE PRN 01/02/19 01/02/19 Allergies Allergy/AdvReac Type Severity Reaction Status Date / Time No Known Allergies Allergy Verified 01/02/19 15:04 Review of Systems ROS Statement: Those systems with pertinent positive or pertinent negative responses have been documented in the HPI. ROS Other: All systems not noted in ROS Statement are negative. Past Medical History Past Medical History: No Reported History Additional Past Medical History / Comment(s): IBS, ovarian cyst History of Any Multi-Drug Resistant Organisms: None Reported Past Surgical History: Cholecystectomy, Hysterectomy, Tubal Ligation, Uterine Ablation Additional Past Surgical History / Comment(s): cataracts removed Past Anesthesia/Blood Transfusion Reactions: No Reported Reaction Past Psychological History: Depression Smoking Status: Never smoker Past Alcohol Use History: Occasional Past Drug Use History: Marijuana - Past Family History Mother Family Medical History: Cancer General Exam - General Exam Comments Initial Comments: 38-year-old female. Alert and oriented 3. Patient appears in no significant distress. Limitations: no limitations General appearance: alert, in no apparent distress Head exam: Present: atraumatic, normocephalic, normal inspection Eye exam: Present: normal appearance, PERRL, EOMI. Absent: scleral icterus, conjunctival injection, periorbital swelling ENT exam: Present: normal exam, mucous membranes moist Neck exam: Present: normal inspection. Absent: tenderness, meningismus, lymphadenopathy Respiratory exam: Present: normal lung sounds bilaterally. Absent: respiratory distress, wheezes, rales, rhonchi, stridor Cardiovascular Exam: Present: regular rate, normal rhythm, normal heart sounds. Absent: systolic murmur, diastolic murmur, rubs, gallop, clicks GI/Abdominal exam: Present: soft Back exam: Present: normal inspection Neurological exam: Present: alert, oriented X3, CN II-XII intact Psychiatric exam: Present: normal affect, normal mood Skin exam: Present: warm, dry, intact, normal color. Absent: rash Course Vital Signs 01/02/19 01/02/19 13:51 15:15 Temperature 98.0 F Pulse Rate 46 L Pulse Rate [ 53 L Photographer Helper ] Respiratory 18 Rate Blood Pressure 129/79 O2 Sat by Pulse 100 Oximetry Medical Decision Making - Medical Decision Making Asians a 38-year-old female presents for concerns for dizziness. EKG did show some sinus bradycardia with heart rate 45 beats. While she was in the ER heart rate did go down to 40 bpm while resting. Patient states that she does not know if this is normal for her. She also complained of some tightness in her chest. The concern for some T-wave inversions in the anterolateral leads. Patient initial troponin is negative. I've no previous EKGs to compare from. As of this time Patient is given aspirin. When evaluated she is resting comfortably in bed and appears in no significant distress. I discussed like to admit the Patient for EKG changes and cardiac monitoring. Patient is agreeable. All questions answered return parameters were discussed. - Lab Data Result diagrams: 01/02/19 15:12 01/02/19 15:12 Lab Results 01/02/19 01/02/19 01/02/19 Range/Units 15:12 15:12 15:12 WBC 6.1 (3.8-10.6) k/uL RBC 4.66 (3.80-5.40) m/uL Hgb 14.0 (11.4-16.0) gm/dL Hct 43.1 (34.0-46.0) % MCV 92.4 (80.0-100.0) fL MCH 30.1 (25.0-35.0) pg MCHC 32.6 (31.0-37.0) g/dL RDW 14.7 (11.5-15.5) % Plt Count 249 (150-450) k/uL Neutrophils % 62 % Lymphocytes % 28 % Monocytes % 6 % Eosinophils % 2 % Basophils % 1 % Neutrophils # 3.8 (1.3-7.7) k/uL Lymphocytes # 1.7 (1.0-4.8) k/uL Monocytes # 0.4 (0-1.0) k/uL Eosinophils # 0.1 (0-0.7) k/uL Basophils # 0.0 (0-0.2) k/uL PT 10.7 (9.0-12.0) sec INR 1.0 (<1.2) APTT 26.0 (22.0-30.0) sec D-Dimer (<0.60) mg/L FEU Sodium 143 (137-145) mmol/L Potassium 4.1 (3.5-5.1) mmol/L Chloride 110 H (98-107) mmol/L Carbon Dioxide 28 (22-30) mmol/L Anion Gap 5 mmol/L BUN 13 (7-17) mg/dL Creatinine 0.69 (0.52-1.04) mg/dL Est GFR (CKD-EPI)AfAm >90 (>60 ml/min/1.73 sqM) Est GFR (CKD-EPI)NonAf >90 (>60 ml/min/1.73 sqM) Glucose 105 H (74-99) mg/dL Calcium 9.6 (8.4-10.2) mg/dL Magnesium 2.3 (1.6-2.3) mg/dL Total Bilirubin 0.6 (0.2-1.3) mg/dL AST 35 (14-36) U/L ALT 20 (9-52) U/L Alkaline Phosphatase 41 (38-126) U/L Troponin I (0.000-0.034) ng/mL Total Protein 6.6 (6.3-8.2) g/dL Albumin 4.0 (3.5-5.0) g/dL 01/02/19 01/02/19 Range/Units 15:12 15:12 WBC (3.8-10.6) k/uL RBC (3.80-5.40) m/uL Hgb (11.4-16.0) gm/dL Hct (34.0-46.0) % MCV (80.0-100.0) fL MCH (25.0-35.0) pg MCHC (31.0-37.0) g/dL RDW (11.5-15.5) % Plt Count (150-450) k/uL Neutrophils % % Lymphocytes % % Monocytes % % Eosinophils % % Basophils % % Neutrophils # (1.3-7.7) k/uL Lymphocytes # (1.0-4.8) k/uL Monocytes # (0-1.0) k/uL Eosinophils # (0-0.7) k/uL Basophils # (0-0.2) k/uL PT (9.0-12.0) sec INR (<1.2) APTT (22.0-30.0) sec D-Dimer 0.18 (<0.60) mg/L FEU Sodium (137-145) mmol/L Potassium (3.5-5.1) mmol/L Chloride (98-107) mmol/L Carbon Dioxide (22-30) mmol/L Anion Gap mmol/L BUN (7-17) mg/dL Creatinine (0.52-1.04) mg/dL Est GFR (CKD-EPI)AfAm (>60 ml/min/1.73 sqM) Est GFR (CKD-EPI)NonAf (>60 ml/min/1.73 sqM) Glucose (74-99) mg/dL Calcium (8.4-10.2) mg/dL Magnesium (1.6-2.3) mg/dL Total Bilirubin (0.2-1.3) mg/dL AST (14-36) U/L ALT (9-52) U/L Alkaline Phosphatase (38-126) U/L Troponin I <0.012 (0.000-0.034) ng/mL Total Protein (6.3-8.2) g/dL Albumin (3.5-5.0) g/dL 01/02/19 15:31 EKG showed signs occur, left ventricular branch. QRS widening. T wave abnormality consider anterolateral ischemia. Abnormal EKG. Ventricular rate of 47 bpm. CA interval is 176 no seconds. QRS ration 120 ms. QT QTc is 464/410 ms. - Radiology Data Radiology results: report reviewed Normal chest x-ray. Disposition Clinical Impression: Chest pain, Dizziness, Bradycardia, Acute electrocardiogram changes Disposition: ADMITTED IP TO THIS HOSP Condition: Stable Is patient prescribed a controlled substance at d/c from ED?: No Referrals: Nonstaff,Physician [REFERRING] - 1-2 days Time of Disposition: 16:46
[2019-01-02 15:31] LABS: Basophils % (A) 1 %; Eosinophils # (A) 0.1 k/uL (0-0.7); Eosinophils % (A) 2 %; HCT 43.1 % (34.0-46.0); Lymphocytes # (A) 1.7 k/uL (1.0-4.8); Lymphocytes % (A) 28 %; MCH 30.1 pg (25.0-35.0); MCHC 32.6 g/dL (31.0-37.0); MCV 92.4 fL (80.0-100.0); Mean Platelet Volume 7.2; Monocytes # (A) 0.4 k/uL (0-1.0); Monocytes % (A) 6 %; Neutrophils # (A) 3.8 k/uL (1.3-7.7); Neutrophils % (A) 62 %; Platelet Count 249 k/uL (150-450); RBC 4.66 m/uL (3.80-5.40); RDW 14.7 % (11.5-15.5); WBC 6.1 k/uL (3.8-10.6)
[2019-01-02 15:39] LABS: ALT 20 U/L (9-52); AST 35 U/L (14-36); African American GFR (CKD) >90 (>60 ml/min/1.73 sqM); Alkaline Phosphatase 41 U/L (38-126); Anion Gap 5 mmol/L; Blood Urea Nitrogen 13 mg/dL (7-17); Calcium 9.6 mg/dL (8.4-10.2); Carbon Dioxide 28 mmol/L (22-30); Chloride 110 mmol/L (98-107); Glucose 105 mg/dL (74-99); Prothrombin Time 10.7 sec (9.0-12.0); Sodium 143 mmol/L (137-145); Total Bilirubin 0.6 mg/dL (0.2-1.3); Total Protein 6.6 g/dL (6.3-8.2)
[2019-01-02 15:45] LABS: Magnesium 2.3 mg/dL (1.6-2.3); Potassium 4.1 mmol/L (3.5-5.1)
--- NOTE | 2019-01-02 16:18 | XR ---
EXAMINATION TYPE: XR chest 2V DATE OF EXAM: 01/02/2019 COMPARISON: 11/27/2012 INDICATION: Chest pain TECHNIQUE: Frontal and lateral views of the chest are obtained. FINDINGS: The heart size is normal. The pulmonary vasculature is normal. The lungs are clear. IMPRESSION: 1. No acute pulmonary process.
[2019-01-02] MEDS ORDERED: MORPHINE SULFATE 4 MG/ML SYRINGE IV PRN (16:46)
[2019-01-02] MEDS ORDERED: NITROGLYCERIN SL TABS 0.4 MG TAB SUBLINGUAL PRN (16:46)
[2019-01-02] MEDS ORDERED: HEPARIN SODIUM,PORCINE 5,000 UNIT/ML 1 ML VIAL IV ONE (16:46)
[2019-01-02] MEDS ORDERED: HEPARIN SOD,PORK IN 0.45% NACL 25,000 UNIT in 0.45% NACL 1 250ML.BAG IV SCH (17:00)
[2019-01-02 20:19] VITALS: BMI 32.6
[2019-01-02] MEDS ORDERED: LORazepam 0.5 MG TAB PO PRN (21:06)
[2019-01-02] MEDS ORDERED: LORazepam 2 MG/ML INJ IV PRN (21:06)
[2019-01-02] MEDS ORDERED: TEMAZEPAM 15 MG CAP PO PRN (21:06)
[2019-01-02] MEDS ORDERED: ACETAMINOPHEN TAB 500 MG TAB PO PRN (21:06)
[2019-01-02 21:25] LABS: Appearance,Urine Clear (Clear); Bilirubin,Urine Negative (Negative); Blood,Urine Negative (Negative); Color,Urine Yellow; Glucose,Urine (UA) Negative (Negative); Ketones,Urine Negative (Negative); Leukocyte Esterase,Urine Negative (Negative); Nitrite,Urine Negative (Negative); PH, Urine 5.5 (5.0-8.0); Protein,Urine Negative (Negative); Specific Gravity,Urine 1.019 (1.001-1.035); Urobilinogen,Urine <2.0 mg/dL (<2.0)
[2019-01-02 21:40] LABS: Amphetamine Screen,Urine Not Detected (NotDetected); Barbiturate Screen,Urine Not Detected (NotDetected); Benzodiazepines Screen,Urine Not Detected (NotDetected); Cocaine Screen,Urine Not Detected (NotDetected); Methadone Screen, Urine Not Detected (NotDetected); Opiate Screen,Urine Detected (NotDetected); Oxycodone Screen, Urine Not Detected (NotDetected); Phencyclidine Screen,Urine Not Detected (NotDetected); Tricyclic Antidepressant,Urine Not Detected (NotDetected); Urn Cannabinoid Scrn Detected (NotDetected)
--- NOTE | 2019-01-02 23:14 | HP ---
HISTORY AND PHYSICAL DATE OF SERVICE: 01/02/2019 CHIEF COMPLAINT: Palpitations, dizziness. HISTORY OF PRESENT ILLNESS: This 38-year-old woman with a past medical history of multiple medical problems including cholecystomy, hysterectomy, tubal ligation, depression, history of polysubstance abuse remotely, being followed by Dr. Haq in the outpatient setting apparently had episodes of dizziness. The patient also had palpitations and at the doctor's office, the patient was noted to have bradycardic and patient was sent to [facility] and admitted for further evaluation and treatment. The dizziness worsening over the past several days according to her. There is some chest discomfort also being complained of. PAST MEDICAL HISTORY: Of IBS, ovarian cyst, depression, polysubstance abuse remotely, cholecystectomy. MEDICATIONS: Prior to admission home medications are: Naprosyn p.r.n. ALLERGIES: None. FAMILY HISTORY: History of cancer in the family. SOCIAL HISTORY: History of alcohol, THC, previous history of smoking. REVIEW OF SYSTEMS: ENT: No diminished vision. No diminished hearing. CARDIOVASCULAR: Cardiovascular as mentioned earlier. RESPIRATIONS: No cough or hemoptysis. GI no nausea or vomiting. no dysuria. Nervous system: No numbness or weakness. ALLERGY/IMMUNOLOGY: No asthma or hayfever. Musculoskeletal as mentioned earlier. HEMATOLOGY/ONCOLOGY: No anemia. ENDOCRINE: No history of diabetes or hypothyroidism. CONSTITUTIONAL: As mentioned earlier. Dermatology: Negative. Rheumatology: Negative. Psychiatry: As mentioned earlier. PHYSICAL EXAMINATION: Alert and oriented times three. Pulse 54, blood pressure 122/50, respiration 16, temperature 98 degrees, pulse ox 97% on room air. HEENT: Conjunctivae normal. Oral mucosa moist. NECK is no jugular venous distention. No carotid bruit. No lymph node enlargement. CARDIOVASCULAR: S1, S2 muffled. No S3, no S4. RESPIRATIONS: Breath sounds diminished in the bases. No rhonchi. No crackles. ABDOMEN: Soft, nontender. No mass palpable. LEGS: No edema. No swelling. NERVOUS SYSTEM: Higher functions as mentioned earlier. Moves all 4 limbs. No focal motor or sensory deficits. Lymphatics: No lymph nodes palpable in the neck, axillae or groin. SKIN: No ulcer, rash or bleeding. LABORATORY DATA: CBC within normal limits. Otherwise sodium 143, potassium 4.1. ASSESSMENT: 1. Chest pain for evaluation, rule out coronary artery disease. 2. Palpitations with sinus bradycardia. 3. ST changes in the EKG. 4. History of cholecystectomy. 5. History of hysterectomy. 6. History of irritable bowel syndrome. 7. History of depression. 8. History of polysubstance abuse previously including cocaine, THC, opiates and prescription drug abuse. RECOMMENDATIONS AND DISCUSSION: In this 38-year-old woman who presented with multiple medical issues, at this time I recommend continue the current medications, continue with symptomatic treatment. Otherwise, antiplatelet agents, cardiology consultation. 2D echo with Doppler. We will keep the patient n.p.o. after midnight. Guarded prognosis. Further recommendations to follow. A copy of this dictation being forwarded to Dr. Haq who is the primary physician. MMAMILCARL / FRANCISN: [id number] /
[2019-01-03 03:43] LABS: Basophils % (A) 1 %; Eosinophils # (A) 0.2 k/uL (0-0.7); Eosinophils % (A) 3 %; HCT 38.5 % (34.0-46.0); Lymphocytes % (A) 37 %; MCH 31.4 pg (25.0-35.0); MCHC 33.9 g/dL (31.0-37.0); MCV 92.6 fL (80.0-100.0); Mean Platelet Volume 6.8; Monocytes # (A) 0.3 k/uL (0-1.0); Monocytes % (A) 6 %; Neutrophils # (A) 2.8 k/uL (1.3-7.7); Neutrophils % (A) 52 %; Platelet Count 207 k/uL (150-450); RBC 4.15 m/uL (3.80-5.40); RDW 13.6 % (11.5-15.5); WBC 5.5 k/uL (3.8-10.6)
[2019-01-03 03:53] LABS: African American GFR (CKD) >90 (>60 ml/min/1.73 sqM); Anion Gap 6 mmol/L; Blood Urea Nitrogen 15 mg/dL (7-17); Calcium 9.1 mg/dL (8.4-10.2); Carbon Dioxide 25 mmol/L (22-30); Chloride 109 mmol/L (98-107); Cholesterol 166 mg/dL (<200); Glucose 89 mg/dL (74-99); HDL Cholesterol 40 mg/dL (40-60); LDL Cholesterol,Calculated 102 mg/dL (0-99); Sodium 140 mmol/L (137-145); Triglycerides 118 mg/dL (<150)
[2019-01-03] MEDS: PANTOPRAZOLE 40 MG TABLET PO SCH (06:15)
--- NOTE | 2019-01-03 09:34 | P.CRDCN ---
History of Present Illness Consult date: 01/03/19 Requesting physician: Shama Damon Reason for Consult (text): Bradycardia Chief complaint: Dizziness History of present illness: This is a 38-year-old female with no prior documented history of hypertension, no diabetes, no hyperlipidemia, she is a nonsmoker, she doesn't occasionally smoke marijuana. Her drug screen was also positive for opiates. She went to her primary care doctor's office yesterday to get a note because she had missed work, while she was there was noted that her heart rate was quite slow, patient was then advised to come to the emergency room for further alberto luation and treatment. Patient denies any symptoms other then dizziness and feeling tired for quite some time. She denies any chest discomfort, no difficulty in breathing. No syncopal episodes. She states that she has been told in the past to have a low heart rate. Her chest x-ray on presentation here did not reveal any acute pulmonary process. Initial EKG showed a sinus bradycardia with anterior lateral T-wave inversion. Subsequent EKG showed sinus bradycardia with anterior lateral T-wave inversion. Blood pressure 108/60 with a heart rate in the 30s to 40s, 98% on room air. White blood cell count is normal, hemoglobin 13, platelet count 207. Sodium 140, potassium 4.0, d-dimer 0.18, BUN 15 and creatinine 0.7. Troponins are negative 3. TSH level 2.2. Drug screen positive for opiates and marijuana. Past Medical History Past Medical History: No Reported History Additional Past Medical History / Comment(s): IBS, ovarian cyst; Pt states she was told she has a low heart rate since 2013 but hasnt done anything about it History of Any Multi-Drug Resistant Organisms: None Reported Past Surgical History: Cholecystectomy, Hysterectomy, Tubal Ligation, Uterine Ablation Additional Past Surgical History / Comment(s): cataracts removed; Right ovary removal Past Anesthesia/Blood Transfusion Reactions: No Reported Reaction Past Psychological History: Depression Smoking Status: Former smoker Past Alcohol Use History: Occasional Past Drug Use History: Cocaine, Marijuana, Opiates, Prescription Drug Abuse Additional Drug Use History / Comment(s): Patient states that she abused cocaine; opiates; and prescrition drug in the past, she stopped in 2012. She still currently uses Marijuana - Past Family History Mother Family Medical History: Cancer Medications and Allergies Home Medications Medication Instructions Recorded Confirmed Type Naproxen Sodium [Aleve] 440 mg PO ONCE PRN 01/02/19 01/02/19 History Allergies Allergy/AdvReac Type Severity Reaction Status Date / Time No Known Allergies Allergy Verified 01/02/19 15:04 Physical Exam Vitals: Vital Signs Temp Pulse Pulse Pulse Resp BP BP 01/03/19 08:11 97.8 F 38 L 16 108/59 01/03/19 04:00 45 L 16 101/56 01/03/19 00:00 97.5 F L 55 L 16 120/62 01/02/19 20:00 97.5 F L 53 L 16 118/55 01/02/19 19:18 98.0 F 54 L 16 110/54 01/02/19 18:43 54 L 16 110/54 01/02/19 18:38 54 L 16 110/54 01/02/19 18:30 54 L 98/64 01/02/19 18:00 43 L 107/62 01/02/19 17:30 54 L 100/61 01/02/19 17:00 47 L 103/61 01/02/19 16:30 46 L 110/61 01/02/19 16:00 110/67 01/02/19 15:54 54 L 18 98/64 01/02/19 15:30 48 L 105/73 01/02/19 15:15 53 L 01/02/19 15:01 49 L 01/02/19 13:51 98.0 F 46 L 18 129/79 Pulse Ox 01/03/19 08:11 98 01/03/19 04:00 98 01/03/19 00:00 99 01/02/19 20:00 96 01/02/19 19:18 97 01/02/19 18:43 97 01/02/19 18:38 97 01/02/19 18:30 97 01/02/19 18:00 97 01/02/19 17:30 96 01/02/19 17:00 97 01/02/19 16:30 99 01/02/19 16:00 95 01/02/19 15:54 97 01/02/19 15:30 99 01/02/19 15:15 01/02/19 15:01 99 01/02/19 13:51 100 Intake and Output 01/02/19 01/03/19 01/03/19 22:59 06:59 14:59 Output Total 100 Balance -100 Output: Urine 100 Other: # Voids 1 Weight 84.1 kg PHYSICAL EXAMINATION: GENERAL: 38-year-old female in no acute distress at my examination HEENT: Head is atraumatic, normocephalic. Pupils equal, round. Sclera anicteric. Conjunctiva are clear. Mucous membranes of the mouth are moist. Neck is supple. There is no elevated jugular venous pressure. No carotid bruit is heard. HEART EXAMINATION: Heart S1, S2 normal. No murmur or gallop heard. CHEST EXAMINATION: Lungs are clear to auscultation and precussion. No chest wall tenderness is noted on palpation or with deep breathing. ABDOMEN: Soft, nontender. Bowel sounds are heard. No organomegaly noted. EXTREMITIES: 2+ peripheral pulses with no evidence of peripheral edema and no calf tenderness noted. NEUROLOGIC patient is awake, alert and oriented 3 . . Results 01/03/19 03:03 01/03/19 03:03 Cardiac Enzymes 01/02/19 01/02/19 01/02/19 Range/Units 15:12 15:12 21:18 AST 35 (14-36) U/L Troponin I <0.012 <0.012 (0.000-0.034) ng/mL 01/03/19 Range/Units 03:03 AST (14-36) U/L Troponin I <0.012 (0.000-0.034) ng/mL Coagulation 01/02/19 01/03/19 Range/Units 15:12 00:57 PT 10.7 (9.0-12.0) sec APTT 26.0 29.6 (22.0-30.0) sec Lipids 01/03/19 Range/Units 03:03 Triglycerides 118 (<150) mg/dL Cholesterol 166 (<200) mg/dL HDL Cholesterol 40 (40-60) mg/dL CBC 01/02/19 01/03/19 Range/Units 15:12 03:03 WBC 6.1 5.5 (3.8-10.6) k/uL RBC 4.66 4.15 (3.80-5.40) m/uL Hgb 14.0 13.0 (11.4-16.0) gm/dL Hct 43.1 38.5 (34.0-46.0) % Plt Count 249 207 (150-450) k/uL Comprehensive Metabolic Panel 01/02/19 01/03/19 Range/Units 15:12 03:03 Sodium 143 140 (137-145) mmol/L Potassium 4.1 4.0 (3.5-5.1) mmol/L Chloride 110 H 109 H (98-107) mmol/L Carbon Dioxide 28 25 (22-30) mmol/L BUN 13 15 (7-17) mg/dL Creatinine 0.69 0.73 (0.52-1.04) mg/dL Glucose 105 H 89 (74-99) mg/dL Calcium 9.6 9.1 (8.4-10.2) mg/dL AST 35 (14-36) U/L ALT 20 (9-52) U/L Alkaline Phosphatase 41 (38-126) U/L Total Protein 6.6 (6.3-8.2) g/dL Albumin 4.0 (3.5-5.0) g/dL Current Medications Generic Name Dose Route Start Last Admin Trade Name Freq PRN Reason Stop Dose Admin Acetaminophen 500 mg 01/02/19 21:06 Tylenol Tab PO Q6HR PRN Fever and/ or Pain Aspirin 325 mg 01/03/19 09:00 Aspirin PO DAILY [facility] Enoxaparin Sodium 80 mg 01/03/19 09:00 Lovenox SQ Q12HR [facility] Lorazepam 0.5 mg 01/02/19 21:06 Ativan PO Q8HR PRN Anxiety Lorazepam 1 mg 01/02/19 21:06 Ativan IV Q6HR PRN Anxiety Nitroglycerin 0.4 mg 01/02/19 16:46 Nitrostat SUBLINGUAL Q5M PRN Chest Pain Pantoprazole Sodium 40 mg 01/03/19 07:30 01/03/19 06:15 Protonix PO Not Given [facility]DA Temazepam 15 mg 01/02/19 21:06 Restoril PO HS PRN Insomnia Intake and Output 01/02/19 01/03/19 01/03/19 22:59 06:59 14:59 Output Total 100 Balance -100 Output: Urine 100 Other: # Voids 1 Weight 84.1 kg 01/03/19 03:03 01/03/19 03:03 EKG Interpretations (text) EKG shows a sinus bradycardia with anterior lateral T-wave inversion Assessment and Plan Plan: Assessment and plan #1 symptoms of dizziness with associated bradycardia. EKG shows a sinus bradycardia with anterior lateral T-wave inversion. TSH level is normal #2 marijuana use Plan We will obtain an echocardiogram with Doppler study. We will also request a previous EKG which was performed at her primary care doctor's office, to compare. Patient has been encouraged to be up ambulating in the hallway to assess her chronotropic response and monitor heart rate. Further recommendations to follow. DNP note has been reviewed, I agree with a documented findings and plan of care. Patient was seen and examined.
[2019-01-03] MEDS: ASPIRIN 325 MG TAB PO SCH (11:16)
[2019-01-03] MEDS: ENOXAPARIN 80 MG/0.8 ML SYRINGE SQ SCH ×2 (11:17→19:56)
--- NOTE | 2019-01-03 13:42 | ECHOF ---
Referral Reason:Bradycardia; EKG changes MEASUREMENTS -------- HEIGHT: 160.0 cm WEIGHT: 83.9 kg BP: 101/56 IVSd: 1.0 cm (0.6 - 1.1) LVIDd: 5.0 cm (3.9 - 5.3) LVPWd: 1.2 cm (0.6 - 1.1) IVSs: 1.3 cm LVIDs: 3.6 cm LVPWs: 1.3 cm RVIDd: 2.3 cm (< 3.3) LAESV Index (A-L): 22.30 ml/m Ao Diam: 2.9 cm (2.0 - 3.7) LA Diam: 3.9 cm (2.7 - 3.8) AV Cusp: 2.1 cm (1.5 - 2.6) EPSS: 1.0 cm MV E Carlos A: 1.08 m/s MV DecT: 266 ms MV A Carlos A: 0.37 m/s MV E/A Ratio: 2.91 RAP: 5.00 mmHg RVSP: 20.92 mmHg MV EF SLOPE: 83.15 mm/s (70 - 150) MV EXCURSION: 15.97 mm (> 18.000) FINDINGS -------- Resting bradycardia (HR<60bpm). This was a technically good study. The left ventricular size is normal. There is mild concentric left ventricular hypertrophy. Overa ll left ventricular systolic function is low-normal with, an EF between 50 - 55 %. The right ventricle is normal in size. The left atrial size is normal. Normal LA size by volume 22+/-6 ml/m2. The right atrial size is normal. Interatrial and interventricular septum intact. The aortic valve is trileaflet and appears structurally normal. The mitral valve is normal. There is trace mitral regurgitation. Trace tricuspid regurgitation present. Right ventricular systolic pressure is normal at < 35 mmHg. There is no pulmonic regurgitation present. The aortic root size is normal. Normal inferior vena cava with normal inspiratory collapse consistent with estimated right atrial pre ssure of 5 mmHg. There is no pericardial effusion. CONCLUSIONS -------- 1. Resting bradycardia (HR<60bpm). 2. This was a technically good study. 3. The left ventricular size is normal. 4. There is mild concentric left ventricular hypertrophy. 5. Overall left ventricular systolic function is low-normal with, an EF between 50 - 55 %. 6. The right ventricle is normal in size. 7. The left atrial size is normal. 8. Normal LA size by volume 22+/-6 ml/m2. 9. The right atrial size is normal. 10. Interatrial and interventricular septum intact. 11. The aortic valve is trileaflet and appears structurally normal. 12. The mitral valve is normal. 13. There is trace mitral regurgitation. 14. Trace tricuspid regurgitation present. 15. Right ventricular systolic pressure is normal at < 35 mmHg. 16. There is no pulmonic regurgitation present. 17. The aortic root size is normal. 18. Normal inferior vena cava with normal inspiratory collapse consistent with estimated right atrial pressure of 5 mmHg. 19. There is no pericardial effusion. RECRUIT INSTRUCTOR: Korina Arce RDCS
[2019-01-03] MEDS ORDERED: MECLIZINE 12.5 MG TAB PO PRN (14:16)
--- NOTE | 2019-01-03 23:03 | P.PN ---
Subjective Progress Note Date: 01/03/19 Principal diagnosis: This is a 38 year old female who was recently admitted for dizziness and bradycardia and is being closely monitored. Cardiology is following. Patient is sitting up in bed eating a regular diet and tolerating well. Patient denies any chest pain, shortness of breath, or palpitations at this time. 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 patient denies any nausea or vomiting. Patients mother is at the bedside. Objective - Vital Signs Vital signs: Vital Signs Temp 98 F 01/03/19 20:00 Pulse 52 L 01/03/19 20:00 Resp 17 01/03/19 20:00 BP 109/64 01/03/19 20:00 Pulse Ox 98 01/03/19 20:00 Intake & Output 01/03/19 01/03/19 01/04/19 06:59 18:59 06:59 Intake Total 360 500 Output Total 100 Balance -100 360 500 Weight 84.1 kg Intake: Oral 360 Blood Product 500 Output: Urine 100 Other: Voiding Method Toilet # Voids 1 1 - Exam PHYSICAL EXAMINATION: GENERAL: The patient is alert and oriented x3, not in any acute distress. Vital signs are stable. Blood pressure is 108/59, pulse is 38, respirations are 16, temp is 97.8F, oxygen saturation is 98% on room air HEENT: Pupils are round and equally reacting to light. EOMI. No scleral icterus. No conjunctival pallor. Normocephalic, atraumatic. No pharyngeal erythema. No thyromegaly. CARDIOVASCULAR: S1 and S2 muffled. No murmurs, rubs, or gallops. PULMONARY: Diminished lung sounds in the bases, no wheezing or crackles. ABDOMEN: Soft, nontender, nondistended, normoactive bowel sounds. No palpable organomegaly. MUSCULOSKELETAL: No joint swelling or deformity. EXTREMITIES: No cyanosis, clubbing, or pedal edema. NEUROLOGICAL: Gross neurological examination did not reveal any focal deficits. SKIN: no rashes or lesions noted - Labs CBC & Chem 7: 01/03/19 03:03 01/03/19 03:03 Labs: Abnormal Lab Results - Last 24 Hours (Table) 01/03/19 Range/Units 03:03 Chloride 109 H (98-107) mmol/L LDL Cholesterol, Calc 102 H (0-99) mg/dL Assessment and Plan Assessment: Chest pain for evaluation, rule out coronary artery disease: 2 D echo shows ejection fraction of 55-60% Palpitations with sinus bradycardia ST changes in the EKG Dizziness History of Cholecystectomy History of hysterectomy History of irritable bowel syndrome History of depression History of polysubstance abuse previously including cocaine, THC, opiates and prescription drug abuse. Recommendations and discussion: Recommend to continue current medication management and symptomatic treatments. Cardiology is following. Will continue to monitor labs and vitals closely. Patient is having dizziness while ambulating. Patient will be started on Antivert 12.5mg three times daily. Guarded prognosis. Further recommendations to follow. Possible discharge home in 24-48 hours.
[2019-01-04] MEDS: PANTOPRAZOLE 40 MG TABLET PO SCH (06:50)
[2019-01-04 07:15] LABS: Basophils % (A) 1 %; Eosinophils # (A) 0.1 k/uL (0-0.7); Eosinophils % (A) 3 %; HCT 41.9 % (34.0-46.0); HGB 13.6 gm/dL (11.4-16.0); Lymphocytes % (A) 37 %; MCHC 32.3 g/dL (31.0-37.0); MCV 92.7 fL (80.0-100.0); Mean Platelet Volume 6.8; Monocytes # (A) 0.3 k/uL (0-1.0); Monocytes % (A) 6 %; Neutrophils # (A) 2.9 k/uL (1.3-7.7); Neutrophils % (A) 52 %; Platelet Count 222 k/uL (150-450); RBC 4.52 m/uL (3.80-5.40); RDW 13.4 % (11.5-15.5); WBC 5.5 k/uL (3.8-10.6)
[2019-01-04 07:31] LABS: African American GFR (CKD) >90 (>60 ml/min/1.73 sqM); Anion Gap 6 mmol/L; Blood Urea Nitrogen 13 mg/dL (7-17); Calcium 9.2 mg/dL (8.4-10.2); Carbon Dioxide 25 mmol/L (22-30); Chloride 111 mmol/L (98-107); Glucose 90 mg/dL (74-99); Potassium 3.9 mmol/L (3.5-5.1); Sodium 142 mmol/L (137-145)
[2019-01-04] MEDS: ASPIRIN 325 MG TAB PO SCH (09:50)
[2019-01-04] MEDS: ENOXAPARIN 80 MG/0.8 ML SYRINGE SQ SCH (09:50)
[2019-01-04 10:32] VITALS: RESP 16
[2019-01-04 12:06] VITALS: BP 99/68; PULSE 54; TEMP 97.9
--- NOTE | 2019-01-04 12:30 | P.PN ---
Subjective Progress Note Date: 01/04/19 This is a 38-year-old female with no prior documented history of hypertension, no diabetes, no hyperlipidemia, she is a nonsmoker, she doesn't occasionally smoke marijuana. Her drug screen was also positive for opiates. She went to her primary care doctor's office yesterday to get a note because she had missed work, while she was there was noted that her heart rate was quite slow, patient was then advised to come to the emergency room for further evaluation and treatment. Patient denies any symptoms other then dizziness and feeling tired for quite some time. She denies any chest discomfort, no difficulty in breathing. No syncopal episodes. She states that she has been told in the past to have a low heart rate. Her chest x-ray on presentation here did not reveal any acute pulmonary process. Initial EKG showed a sinus bradycardia with anterior lateral T-wave inversion. Subsequent EKG showed sinus bradycardia with anterior lateral T-wave inversion. Blood pressure 108/60 with a heart rate in the 30s to 40s, 98% on room air. White blood cell count is normal, hemoglobin 13, platelet count 207. Sodium 140, potassium 4.0, d-dimer 0.18, BUN 15 and creatinine 0.7. Troponins are negative 3. TSH level 2.2. Drug screen positive for opiates and marijuana. 01/04/2019 Patient seen and examined this morning, heart rate in the 50s, she feels well, no complaints. Blood pressure 100/60 with a heart rate in the 50s, heart rate increases up into the 60s with ambulation. White blood cell count 5.5, hemoglobin 13.6, platelet count 222. Sodium 142, potassium 3.9, BUN 13 and creatinine 0.5. Echocardiogram with Doppler study was performed which revealed a normal left ventricular systolic function. Objective - Vital Signs Vital signs: Vital Signs Temp 97.9 F 01/04/19 12:00 Pulse 54 L 01/04/19 12:00 Resp 16 01/04/19 12:00 BP 99/68 01/04/19 12:00 Pulse Ox 98 01/04/19 12:00 Intake & Output 01/03/19 01/04/19 01/04/19 18:59 06:59 18:59 Intake Total 360 1000 240 Balance 360 1000 240 Weight 83.5 kg Intake: Oral 360 1000 240 Other: Voiding Method Toilet Toilet # Voids 1 2 1 - Exam PHYSICAL EXAMINATION: GENERAL: 38-year-old female in no acute distress at my examination HEENT: Head is atraumatic, normocephalic. Pupils equal, round. Sclera anicteric. Conjunctiva are clear. Mucous membranes of the mouth are moist. Neck is supple. There is no elevated jugular venous pressure. No carotid bru it is heard. HEART EXAMINATION: Heart S1, S2 normal. No murmur or gallop heard. CHEST EXAMINATION: Lungs are clear to auscultation and precussion. No chest wall tenderness is noted on palpation or with deep breathing. ABDOMEN: Soft, nontender. Bowel sounds are heard. No organomegaly noted. EXTREMITIES: 2+ peripheral pulses with no evidence of peripheral edema and no calf tenderness noted. NEUROLOGIC patient is awake, alert and oriented 3 . . - Labs CBC & Chem 7: 01/04/19 06:59 01/04/19 06:59 Labs: Abnormal Lab Results - Last 24 Hours (Table) 01/04/19 Range/Units 06:59 Chloride 111 H (98-107) mmol/L Assessment and Plan Plan: Assessment and plan #1 symptoms of dizziness with associated bradycardia. EKG shows a sinus bradycardia with anterior lateral T-wave inversion. TSH level is normal #2 marijuana use Plan Echo cardiac gram with Doppler study revealed a normal left ventricular systolic function, TSH level was normal. Heart rate up into the 60s with ambulation. From our perspective she may be able to be discharged home once cleared by her primary. We will make her a follow-up appointment in the office post discharge. DNP note has been reviewed, I agree with a documented findings and plan of care. Patient was seen and examined.
--- NOTE | 2019-01-05 03:46 | P.DS ---
Providers Date of admission: 01/02/19 16:33 Expected date of discharge: 01/04/19 Attending physician: Shama Damon Consults: 01/02/19 16:46 Consult Physician Urgent Consulting Provider: Garland Villatoro Consult Reason/Comments: EKG changes Do you want consulting provider notified?: Yes Primary care physician: [facility] Course: Final Diagnosis Chest pain for evaluation, rule out coronary artery disease: 2 D echo shows ejection fraction of 55-60% Palpitations with sinus bradycardia ST changes in the EKG Dizziness History of Cholecystectomy History of hysterectomy History of irritable bowel syndrome History of depression History of polysubstance abuse previously including cocaine, THC, opiates and prescription drug abuse. Discharge disposition This patient is being discharged in stable condition with guarded prognosis to home and is to follow-up with neurology in an outpatient setting. History of present illness This is a 38 year old female who was recently admitted for dizziness and bradycardia and is being closely monitored. Cardiology is following. Patient is walking the halls currently in no acute distress with a steady gait. Patient denies any dizziness at this time. Patient denies any chest pain, shortness of breath, or palpitations at this time. Patient states that she is feeling better. Patient denies any headaches or lightheadedness at this time. Patient has been eating a regular diet and tolerating well. Patient denies any nausea or vomiting and is afebrile. On exam vital signs are stable. Blood pressure is 99/68, pulse is 54, resp are 16 , temp is 97.9F, and oxygen saturation is 98% on room air. Cardio S1 and S2 are normal. Respiratory system is clear to auscultation. Abdomen is soft and non-tender. Nervous system shows no focal deficits and gait is steady. Please refer to medication reconciliation sheet for a list of medications. Patient Condition at Discharge: Stable Plan - Discharge Summary Discharge Rx Participant: No New Discharge Prescriptions: New Meclizine [Antivert] 12.5 mg PO TID PRN #15 tab PRN Reason: Vertigo Continue Naproxen Sodium [Aleve] 440 mg PO ONCE PRN PRN Reason: Headache Discharge Medication List Naproxen Sodium [Aleve] 440 mg PO ONCE PRN 01/02/19 [History] Meclizine [Antivert] 12.5 mg PO TID PRN #15 tab 01/04/19 [Rx] Follow up Appointment(s)/Referral(s): Rema Garcias MD [STAFF PHYSICIAN] - 01/09/19 9:30 am (Monday) Garland Villatoro MD [STAFF PHYSICIAN] - 01/17/19 10:45 am () Curtis Haq DO [Primary Care Provider] - 3 Days (Office is closed. Please call to schedule appointment) Activity/Diet/Wound Care/Special Instructions: 30 day event monitor-picker feeder from cardiology today post discharge diet reg act limited till f/u Discharge Disposition: HOME SELF-CARE
--- NOTE | 2019-01-05 09:23 | DS ---
DISCHARGE SUMMARY FINAL DIAGNOSES: 1. Chest pain. Myocardial infarction ruled out. 2. Palpitations and sinus bradycardia. 3. ST-T changes on the EKG. 4. History of dizziness. 5. Cholecystectomy. 6. Hysterectomy. 7. History of irritable bowel syndrome. 8. History of depression. 9. History of polysubstance abuse in the remote past. DISCHARGE DISPOSITION: The patient will be discharged in stable condition with guarded prognosis. HISTORY OF PRESENT ILLNESS: This 38-year-old woman with a past medical history of multiple medical problems was admitted with palpitations. EKG showed sinus bradycardia with right bundle branch block pattern. Cardiology saw the patient, recommended outpatient followup. Otherwise, echocardiogram was also done. The patient is being discharged in stable condition with guarded prognosis with the following advice and medications. DISCHARGE ADVICE AND MEDICATIONS: 1. Diet is cardiac diet. 2. Activity limited until followup. 3. Follow up with Dr. Haq in 2-3 days. 4. Follow up with Cardiology and Dr. Garcias as recommended. DISCHARGE MEDICATIONS: 1. Naprosyn p.r.n. 2. Antivert 12.5 mg t.i.d. p.r.n. Once again the patient will be discharged in stable condition with guarded prognosis. MMODL / IJN: [id number] /
== END 2019-01-04 13:05 | disposition home or self-care (01) ==
LOC: EC 13:43 → INTOOBSV 16:33 → 3SCARD 16:33 → UNDODISIN 01-04 13:05
PROVIDERS: ADMIT Hospitalist; ATTEND Hospitalist
PROC: 05HF33Z Insertion of Infusion Device into Left Cephalic Vein, Percutaneous Approach (ICD-10-PCS; principal; 2019-01-03 09:00)
DX: R07.9 Chest pain, unspecified (principal); R00.1 Bradycardia, unspecified; I45.10 Unspecified right bundle-branch block; F32.9 Major depressive disorder, single episode, unspecified; K58.9 Irritable bowel syndrome, unspecified; Z87.891 Personal history of nicotine dependence; Z90.710 Acquired absence of both cervix and uterus; Z90.49 Acquired absence of other specified parts of digestive tract; Z87.42 Personal history of other diseases of the female genital tract; Z98.42 Cataract extraction status, left eye; Z98.41 Cataract extraction status, right eye; Z86.59 Personal history of other mental and behavioral disorders; Z87.898 Personal history of other specified conditions; Z80.9 Family history of malignant neoplasm, unspecified
CPT/HCPCS: 99285; 96372 ×2; 96376; 96365; 96375; 36415; 93005; 93306; 36410; 76937; 85379; 80061; 80053; 80048 ×2; 84443 ×2; 83735; 84484 ×2; 85025 ×3; 85610; 85730 ×2; 81003; 80306; 71046; G0378 ×3; J2270; J1644 ×2; J1650 ×2; 96361

== ENCOUNTER → 2019-01-17 | Outpatient (CLI) | payer OTHER ==
--- NOTE | 2019-01-17 08:00 | CT ---
EXAMINATION TYPE: CT brain wo con DATE OF EXAM: 01/17/2019 COMPARISON: None. HISTORY: Presyncope CT DLP: 1121.00 mGycm. Automated Exposure Control for Dose Reduction was Utilized. TECHNIQUE: CT scan of the head is performed without contrast. FINDINGS: There is no acute intracranial hemorrhage, mass effect, or midline shift identified. The ventricles and sulci are within normal limits in size. Garcia-white matter differentiation is maintain ed. The globes are intact and the visualized sinuses are clear. Patchy soft tissue density left extra auditory canal is felt to reflect cerumen on axial image 8. IMPRESSION: No acute intracranial hemorrhage or midline shift is seen.
--- NOTE | 2019-01-17 08:46 | US ---
EXAMINATION TYPE: US carotid duplex BILAT DATE OF EXAM: 01/17/2019 COMPARISON: CT brain CLINICAL HISTORY: R55 Pre syncope. Dizziness; low heart rate EXAM MEASUREMENTS: RIGHT: Peak Systolic Velocity (PSV) cm/sec ----- Right CCA: 100.5 ----- Right ICA: 105.5 ----- Right ECA: 111.9 ICA/CCA ratio: 1.1 RIGHT: End Diastole cm/sec ----- Right CCA: 15.9 ----- Right ICA: 17.2 ----- Right ECA: 17.2 LEFT: Peak Systolic Velocity (PSV) cm/sec ----- Left CCA: 92.6 ----- Left ICA: 80.3 ----- Left ECA: 94.3 ICA/CCA ratio: 0.9 LEFT: End Diastole cm/sec ----- Left CCA: 18.1 ----- Left ICA: 29.8 ----- Left ECA: 13.9 VERTEBRALS (direction of flow): Right Vertebral: Antegrade Left Vertebral: Antegrade Rhythm: Normal Very mild intimal wall thickening is noted at bilateral ICA bulb and PSV is wnl bilaterally. IMPRESSION: No hemodynamically significant stenosis is seen either internal carotid artery . Criteria for Assigning % of Stenosis / Diameter reduction (Estimation based on the indirect measurements of the internal carotid artery velocities (ICA PSV). 1. Normal (no stenosis)=ICA PSV < 125 cm/s: ratio < 2.0: ICA EDV<40 cm/s. 2. Less than 50% stenosis=ICA PSV < 125 cm/s: ratio < 2.0: ICA EDV<40 cm/s. 3. 50 to 69% stenosis=ICA PSV of 125 to 230 cm/s: ration 2.0 ? 4.0: ICA EDV 40-100 cm/s. 4. Greater than 70% stenosis to near occlusion= ICA PSV > 230 cm/s: ratio > 4.0: ICA EDV > 100 cm/s. 5. Near occlusion= ICA PSV velocities may be low or undetectable: variable ratio and ICA EDV. 6. Total occlusion=unable to detect flow.
== END | disposition home or self-care (01) ==
LOC: RADCTMAIN 07:27
PROVIDERS: ATTEND Psychiatry & Neurology Neurology
DX: R55 Syncope and collapse (principal)
CPT/HCPCS: 70450; 93880

== ENCOUNTER → 2019-03-21 | Day surgery (SDC) | payer OTHER ==
[~2019-03-21] MED LIST changes: -DEXAMETHASONE SOD PHOSPHATE 10 MG/ML 1 ML VIAL IV ONE; -LIDOCAINE 1% 20 ML VIAL (10MG/ML) FOR IV START INTRADERMA PRN; -MIDAZOLAM (PF) 2 MG/2 ML VIAL IV PRN; +SODIUM CHLORIDE 0.9% 1,000 ML IV SCH; -ceFAZolin IN SWFI 2 GM/20 ML SYRINGE IVP ONE; -fentaNYL (PF) 50 MCG/ML 2 ML AMP IV PRN
[2019-03-21 09:08] VITALS: BP 102/60; PULSE 46; RESP 18; TEMP 97.9
--- NOTE | 2019-03-21 12:51 | P.PCN ---
Preoperative Diagnosis: Diagnosis Recurrent presyncope Twelve-lead ECG shows sinus bradycardia at 40 beats a minute normal IN interval QRS 134 ms with QRS fractionation noted in V4 and V5 and V6 and lead 2 Sharp Terminal deflection at the end of the QRS in lead V1 Tilt table test per protocol Baseline blood pressure 106/56. His mercury Baseline 142 beats a minute Patient was tilted upright at an angle of 70 for 40 minutes No significant change in heart rate or blood pressure Patient complaining of tightness in the chest shortness of breath and later started feeling dizzy without any change in heart rate or blood pressure Impression Normal heart rate and blood pressure response to upright tilting. Symptoms did not correlate with any heart rate or blood pressure changes Abnormal twelve-lead ECG with QRS fractionation and sharp terminal deflection in the QRS of lead V1 Suggest Evaluate cardiac structure and function both right ventricle and left ventricle preferably with cardiac MRI to look for evidence of delayed enhancement in the mid to epicardial myocardium in the anterior RV as well as lateral and inferior ramon
== END ==
LOC: CATHEP 08:41
PROVIDERS: ATTEND Internal Medicine Clinical Cardiac Electrophysiology
DX: R55 Syncope and collapse (principal)
CPT/HCPCS: 93660

== ENCOUNTER → 2019-04-30 | Outpatient (CLI) | payer OTHER ==
--- NOTE | 2019-04-30 22:08 | CONS ---
CONSULTATION REASON FOR CONSULTATION: Sinus bradycardia. Possible sleep apnea. This is a 38-year-old female patient, obese, who was hospitalized for recurrent episodes of presyncope. The patient was having rhythm problems where her EKG showed sinus bradycardia with right bundle branch block pattern. She was seen by Cardiology and she was briefly hospitalized. Her echocardiogram was within normal limits. She had a tilt-table test that came back negative. For now the patient is being considered for sleep apnea, as the patient had a monitor that showed sinus bradycardia, worse during sleep. Clinically she admits to snoring. She admits to waking up gasping for air occasionally at night time. She goes to bed around 10 p.m., wakes up at 5 a.m. in the morning. She is sleepy and carries an Lamont score of 13. No sleep paralysis. No hallucinations. No cataplexy. 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 Her Lamont score is 13. PAST MEDICAL HISTORY: Episodes of presyncope and sinus bradycardia. PAST SURGICAL HISTORY: Past surgical history includes cholecystectomy, hysterectomy and cataract surgery in both eyes. DRUG ALLERGIES: NOT KNOWN. MEDICATIONS: None. SOCIAL HISTORY: The patient is a nonsmoker. No history of alcoholism. No history of IV drugs. FAMILY HISTORY: Negative for sleep apnea. REVIEW OF SYSTEMS: Fourteen-point review of systems was done. She has increased fatigue and sleepiness. She has snoring. No insomnia. No grinding of the teeth. No sleepwalking. No dry mouth. No panic attacks. No anxiety. No palpitations. No heartburn. No chest pain. There are episodes of presyncope, as mentioned above. PHYSICAL EXAMINATION: VITAL SIGNS: BP is 119/74, pulse is 53, regular, and temperature 97.6 with a saturation 96% on room air. Height is 5 feet 2 inches, weight 191. Lamont score is 13. Body mass index is 34. Neck size 14-3/4 inches. GENERAL APPEARANCE: Calm, comfortable. HEAD: Atraumatic, normocephalic. There is an overbite. NECK: Supple. No goiter or neck masses. Mallampati class III. LUNGS: Clear to auscultation. HEART: Heart sounds are regular rate and rhythm. Normal S1, S2. Slightly bradycardic. No significant murmurs appreciated. ABDOMEN: Soft, nontender. No organomegaly. EXTREMITIES: No edema. No cyanosis or clubbing. NEUROLOGIC: Alert and oriented x3. No focal neurological deficits. PSYCHIATRIC: Negative for anxiety or depression. IMPRESSION: 1. Obstructive sleep apnea clinically suspected; under investigation. 2. 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 3. Sinus bradycardia with nocturnal drop in heart rate. The patient has episodes of presyncope. PLAN: 1. Complete the cardiac workup regarding the episodes of presyncope and sinus bradycardia. 2. Will obtain a polysomnogram to rule out any obstructive sleep apnea. 3. Encourage weight loss. 4. Follow up with Cardiology. Consider pacemaker insertion if no cause for her presyncope and she continues to have bradycardic events. Will continue to follow and will make further recommendations should there be any sleep breathing disorder on the current sleep study. TONO / SHANIQUA: [id number] /
== END | disposition home or self-care (01) ==
LOC: SLEEP 16:47
PROVIDERS: ATTEND Internal Medicine
DX: G47.19 Other hypersomnia (principal); R00.1 Bradycardia, unspecified; R55 Syncope and collapse
CPT/HCPCS: 99211

== ENCOUNTER 2019-05-08 10:29 | Emergency (ER) | payer OTHER ==
[2019-05-08 10:36] VITALS: BP 118/77; PULSE 64; RESP 18; TEMP 98.1
[2019-05-08] MEDS ORDERED: ONDANSETRON 4 MG/2 ML VIAL IVP STA (10:55)
[2019-05-08] MEDS ORDERED: DICYCLOMINE 10 MG/ML 2 ML AMP IM STA (10:55)
[2019-05-08] MEDS ORDERED: PANTOPRAZOLE 40 MG/10 ML VIAL IVP STA (10:55)
--- NOTE | 2019-05-08 11:01 | ED ---
Abdominal Pain HPI - General Chief Complaint: Abdominal Pain Stated Complaint: vomiting Time Seen by Provider: 05/08/19 10:37 Source: patient Mode of arrival: ambulatory Limitations: no limitations - History of Present Illness Initial Comments: patient is a 38-year-old female presenting to the emergency department with a chief complaint of nausea vomiting diarrhea abdominal pain. She states yesterday she developed suprapubic abdominal pain followed by nausea and multiple eminences of nonbilious vomiting and nonbloody diarrhea. She reports not being able to keep anything down. She reports chills but no fevers. denies increased urgency frequency dysuria. Denies any vaginal discharge , bleeding, itching or foul smell.denies taking medication to alleviate the symptoms. Patient not concern for hysterectomy. Has a surgical history of cholecystectomy and hysterectomy.denies chest pain shortness of breath or back pain. - Related Data Previous Rx's Medication Instructions Recorded Ondansetron Odt [Zofran Odt] 4 mg PO Q8HR PRN #10 tab 05/08/19 Allergies Allergy/AdvReac Type Severity Reaction Status Date / Time No Known Allergies Allergy Verified 05/08/19 10:34 Review of Systems ROS Statement: Those systems with pertinent positive or pertinent negative responses have been documented in the HPI. ROS Other: All systems not noted in ROS Statement are negative. Past Medical History Past Medical History: GERD/Reflux Additional Past Medical History / Comment(s): RECENT: DIZZINES. SEE DR. [facility] IBS. History of Any Multi-Drug Resistant Organisms: None Reported Past Surgical History: Cholecystectomy, Hysterectomy, Tubal Ligation, Uterine Ablation Additional Past Surgical History / Comment(s): [facility] cataracts removed; Right ovary removed with hysterectomy Past Anesthesia/Blood Transfusion Reactions: No Reported Reaction Past Psychological History: No Psychological Hx Reported Smoking Status: Former smoker Past Alcohol Use History: Rare Past Drug Use History: Cocaine, Marijuana, Opiates, Prescription Drug Abuse - Past Family History Mother Family Medical History: Cancer General Exam Limitations: no limitations General appearance: alert, in no apparent distress, obese Head exam: Present: atraumatic, normocephalic, normal inspection Eye exam: Present: normal appearance Pupils: Present: normal accommodation ENT exam: Present: normal exam, normal oropharynx, mucous membranes moist, TM's normal bilaterally, normal external ear exam Neck exam: Present: normal inspection, full ROM Respiratory exam: Present: normal lung sounds bilaterally Cardiovascular Exam: Present: regular rate, normal rhythm, normal heart sounds GI/Abdominal exam: Present: soft, tenderness (right lower quadrant. Positive McBurney point. Negative psoas, obturator, Rovsing.), normal bowel sounds. Absent: distended, guarding, rebound, rigid, diminished bowel sounds, hyperactive bowel sounds, organomegaly, mass, bruit, pulsatile mass, hernia Extremities exam: Present: normal inspection, full ROM Back exam: Present: normal inspection, full ROM. Absent: CVA tenderness (R), CVA tenderness (L) Neurological exam: Present: alert, oriented X3 Psychiatric exam: Present: normal affect, normal mood Skin exam: Present: warm, dry, intact, normal color Course Vital Signs 05/08/19 10:34 Temperature 98.1 F Pulse Rate 64 Respiratory 18 Rate Blood Pressure 118/77 O2 Sat by Pulse 97 Oximetry Medical Decision Making - Medical Decision Making Patient is a 38-year-old female presenting to the emergency department with chief complaint of nausea vomiting diarrhea and abdominal pain. Physical examination shows right suprapubic tenderness. No CVA tenderness. Some right lower quadrant tenderness with a positive McBurney but all the signs are negative. I have very low suspicion for appendicitis. She decision making was discussed for CT imaging for appendicitis. Patient declined. Patient has no vaginal or urinary symptoms. Aside from slight elevation in AST CBC CMP and UA are unremarkable. Patient given fluids and antiemetics, Bentyl and Protonix. Reevaluation patient reports improvement in her symptoms. I suspect the patient has gastroenteritis. No signs of acute abdomen. Patient advised to alternate between Tylenol and ibuprofen for pain control. Patient advised to drink lots of fluids. Patient advised to eat a BRAT diet. Patient advised to follow with primary care. Strict return parameters were thoroughly discussed with patient was understanding and agreeable. Patient prescribed Zofran. Case discussed with physician. - Lab Data Result diagrams: 05/08/19 11:20 05/08/19 11:20 Lab Results 05/08/19 05/08/19 05/08/19 Range/Units 11:20 11:20 11:20 WBC 8.1 (3.8-10.6) k/uL RBC 4.45 (3.80-5.40) m/uL Hgb 14.0 (11.4-16.0) gm/dL Hct 40.5 (34.0-46.0) % MCV 90.9 (80.0-100.0) fL MCH 31.4 (25.0-35.0) pg MCHC 34.5 (31.0-37.0) g/dL RDW 13.0 (11.5-15.5) % Plt Count 246 (150-450) k/uL Neutrophils % 75 % Lymphocytes % 15 % Monocytes % 7 % Eosinophils % 1 % Basophils % 0 % Neutrophils # 6.0 (1.3-7.7) k/uL Lymphocytes # 1.2 (1.0-4.8) k/uL Monocytes # 0.6 (0-1.0) k/uL Eosinophils # 0.1 (0-0.7) k/uL Basophils # 0.0 (0-0.2) k/uL Sodium 141 (137-145) mmol/L Potassium 4.5 (3.5-5.1) mmol/L Chloride 108 H (98-107) mmol/L Carbon Dioxide 24 (22-30) mmol/L Anion Gap 9 mmol/L BUN 12 (7-17) mg/dL Creatinine 0.73 (0.52-1.04) mg/dL Est GFR (CKD-EPI)AfAm >90 (>60 ml/min/1.73 sqM) Est GFR (CKD-EPI)NonAf >90 (>60 ml/min/1.73 sqM) Glucose 115 H (74-99) mg/dL Calcium 10.1 (8.4-10.2) mg/dL Total Bilirubin 0.7 (0.2-1.3) mg/dL AST 39 H (14-36) U/L ALT 37 (9-52) U/L Alkaline Phosphatase 51 (38-126) U/L Total Protein 6.5 (6.3-8.2) g/dL Albumin 4.0 (3.5-5.0) g/dL Amylase 62 (30-110) U/L Lipase 52 (23-300) U/L Urine Color Yellow Urine Appearance Cloudy H (Clear) Urine pH 6.0 (5.0-8.0) Ur Specific [place] 1.019 (1.001-1.035) Urine Protein Negative (Negative) Urine Glucose (UA) Negative (Negative) Urine Ketones Negative (Negative) Urine Blood Negative (Negative) Urine Nitrite Negative (Negative) Urine Bilirubin Negative (Negative) Urine Urobilinogen <2.0 (<2.0) mg/dL Ur Leukocyte Esterase Negative (Negative) Urine WBC 1 (0-5) /hpf Ur Squamous Epith Cells 8 H (0-4) /hpf Urine Bacteria Rare H (None) /hpf Urine Mucus Occasional H (None) /hpf Disposition Clinical Impression: Gastroenteritis Disposition: HOME SELF-CARE Condition: Stable Instructions (If sedation given, give patient instructions): Gastroenteritis (DC) Additional Instructions: Please take prescribed medication as directed. Please follow with primary care. Patient emergency department if symptoms worsen. Is patient prescribed a controlled substance at d/c from ED?: No Referrals: Curtis Haq DO [Primary Care Provider] - 1-2 days Time of Disposition: 12:44
[2019-05-08 11:42] LABS: Basophils % (A) 0 %; Eosinophils # (A) 0.1 k/uL (0-0.7); Eosinophils % (A) 1 %; HCT 40.5 % (34.0-46.0); Lymphocytes # (A) 1.2 k/uL (1.0-4.8); Lymphocytes % (A) 15 %; MCH 31.4 pg (25.0-35.0); MCHC 34.5 g/dL (31.0-37.0); MCV 90.9 fL (80.0-100.0); Mean Platelet Volume 7.2; Monocytes # (A) 0.6 k/uL (0-1.0); Monocytes % (A) 7 %; Neutrophils % (A) 75 %; Platelet Count 246 k/uL (150-450); RBC 4.45 m/uL (3.80-5.40); WBC 8.1 k/uL (3.8-10.6)
[2019-05-08 12:22] LABS: Appearance,Urine Cloudy (Clear); Bacteria,Urine Rare /hpf; Bilirubin,Urine Negative (Negative); Blood,Urine Negative (Negative); Color,Urine Yellow; Glucose,Urine (UA) Negative (Negative); Ketones,Urine Negative (Negative); Leukocyte Esterase,Urine Negative (Negative); Mucus,Urine Occasional /hpf; Nitrite,Urine Negative (Negative); Protein,Urine Negative (Negative); Specific Gravity,Urine 1.019 (1.001-1.035); Squamous Epithelial Cell,Urine 8 /hpf (0-4); Urobilinogen,Urine <2.0 mg/dL (<2.0)
[2019-05-08 12:35] LABS: ALT 37 U/L (9-52); AST 39 U/L (14-36); African American GFR (CKD) >90 (>60 ml/min/1.73 sqM); Alkaline Phosphatase 51 U/L (38-126); Amylase 62 U/L (30-110); Anion Gap 9 mmol/L; Blood Urea Nitrogen 12 mg/dL (7-17); Calcium 10.1 mg/dL (8.4-10.2); Carbon Dioxide 24 mmol/L (22-30); Chloride 108 mmol/L (98-107); Glucose 115 mg/dL (74-99); Non-African American GFR(CKD) >90 (>60 ml/min/1.73 sqM); Potassium 4.5 mmol/L (3.5-5.1); Sodium 141 mmol/L (137-145); Total Bilirubin 0.7 mg/dL (0.2-1.3); Total Protein 6.5 g/dL (6.3-8.2)
[2019-05-08] MEDS ORDERED: ONDANSETRON 4 MG ODT STARTER PACK 2 TAB BTL PO STA (12:43)
== END 2019-05-08 12:53 | disposition home or self-care (01) ==
LOC: EC 10:29
DX: K52.9 Noninfective gastroenteritis and colitis, unspecified (principal); R74.8 Abnormal levels of other serum enzymes; Z87.891 Personal history of nicotine dependence; Z87.19 Personal history of other diseases of the digestive system; Z90.49 Acquired absence of other specified parts of digestive tract; Z53.20 Procedure and treatment not carried out because of patient's decision for unspecified reasons
CPT/HCPCS: 36415; 80053; 82150; 83690; 85025; 81001; 99284; 96374; 96375; 96372; J0500; J2405; S0119; C9113